=== PATIENT | female | born 1945 | race Caucasian/White ===

== ENCOUNTER 2022-07-11 03:54 | Emergency (ER) | payer MEDICARE, SELFPAY ==
[2022-07-11 03:56] VITALS: BP 125/77; PULSE 117; RESP 18; TEMP 36.6; O2SAT 93; BMI 51.0
[2022-07-11] MEDS: HYDROcodone Bitartrate/Apap 5/325 Tablet PO (04:48)
--- NOTE | 2022-07-11 04:53 | ED.VIS.BACK ---
HPI History of Present Illness Chief Complaint: Back Narrative Narrative: 76-year-old female presenting with pain in the left gluteal region radiating down her posterior leg for the last month. She states she was seen by her primary care physician's nurse practitioner about a week ago that she was told she has arthritis. She was put on cyclobenzaprine and Ultram and has been taking this and seems like it was helping although tonight when she took it it did not help. She denies any new trauma. She denies loss of bladder or bowel control. She denies saddle anesthesia or anesthesia. She does some difficulty getting up out of bed earlier secondary to pain. She states she can ambulate however with her walker. She has not had any falls. [facility] Medical History A-fib Diabetes Sleep apnea Home Medications Multi For Her tab PO.IVFORM DAILY 07/11/22 [History Last Taken Unknown] atorvastatin 10 mg tablet 10 mg PO QHS 07/11/22 [History Last Taken Unknown] benazepril 10 mg tablet 10 mg PO DAILY 07/11/22 [History Last Taken Unknown] cholecalciferol (vitamin D3) 10 mcg (400 unit) capsule (Vitamin D3) mcg PO DAILY 07/11/22 [History Last Taken Unknown] cyclobenzaprine 5 mg tablet 5 mg PO QHS 07/11/22 [History Last Taken Unknown] diltiazem HCl 240 mg capsule,24 hr,extended release 240 mg PO DAILY 07/11/22 [History Last Taken Unknown] fluconazole 100 mg tablet 100 mg PO DAILY 07/11/22 [History Last Taken Unknown] furosemide 20 mg tablet (Lasix) 20 mg PO DAILY 07/11/22 [History Last Taken Unknown] glipizide 2.5 mg tablet, extended release 24 hr 2.5 mg PO DAILY 07/11/22 [History Last Taken Unknown] hydrocodone-acetaminophen 5-325mg 5mg-325mg 1 tab PO Q6H PRN PRN Pain 3 days #12 TABLETS 07/11/22 [Rx Last Taken Unknown] iron 18 mg tablet mg PO DAILY 07/11/22 [History Last Taken Unknown] metoprolol tartrate 25 mg tablet 25 mg PO BID 07/11/22 [History Last Taken Unknown] rivaroxaban 20 mg tablet (Xarelto) 20 mg PO DAILY 07/11/22 [History Last Taken Unknown] spironolactone 25 mg tablet 25 mg PO DAILY 07/11/22 [History Last Taken Unknown] tramadol 50 mg tablet 50 mg PO BID PRN Pain 07/11/22 [History Last Taken Unknown] Allergy/AdvReac Type Severity Reaction Status Date / Time No Known Allergies Allergy Verified 07/11/22 03:58 Social History Smoking Status: Never smoker ROS ROS ED Constitutional Constitutional ED: Denies chills or fever(s) Eyes Eyes: Denies change in vision or diplopia ENT ENT ED: Denies rhinorrhea or sore throat Cardiovascular Cardiovascular: Denies chest pain or palpitations Respiratory/Chest Respiratory/Chest: Denies dyspnea or dyspnea on exertion Gastrointestinal Gastrointestinal: Denies abdominal pain or constipation Musculoskeletal Musculoskeletal: Reports other Details: Left gluteal pain radiating down her leg posteriorly Integumentary Denies abscess or Abrasions EXAM Physical Exam Const Vital Signs: 07/11/22 03:56 Temperature 97.8 F Temperature Source Oral Pulse Rate 117 H Respiratory Rate 18 Blood Pressure 125/77 H Blood Pressure Mean 93 Pulse Ox 93 Oxygen Delivery Method Room Air Positive well nourished and obese General Appearance ED: NAD Nutritional Appearance: obese HEENT Reports moist mucous membranes Eyes PERRL Neck No no lymphadenopathy and No supple Resp normal respiratory effort and clear to auscultation bilaterally Cardio Negative for regular rate or regular rhythm GI normal to inspection, nondistended, normoactive bowel sounds Palpation: Negative for tender or guarding Extremity Extremity Narrative: Tenderness to palpation in the left gluteal region. Straight leg raise test positive at 15 degrees. Neuro oriented x3 Sensorium / Orientation: alert Motor Exam: strength 5/5 throughout Psych mental status grossly normal Skin no rashes or lesions noted MDM MDM MDM Narrative Medical decision making narrative: After discussion with her and her daughter they wanted to try [place] as they had not previously been prescribed this. I did offer IM morphine to try to get the pain in control quicker, but the patient states that she does not want a shot if she has any 1. She was given a [place]. I do not believe she we will reevaluate her and see if she can ambulate. On reevaluation at 6:30 AM the patient is ambulatory. She states her pain is well controlled. At this point I feel she stable for discharge. She will be given a prescription for [place] for home. Return precautions are discussed. I did recommend to her that she start a stool softener and/or laxative given that opioids will make her constipated. She knowledge understanding. Impression: 1. Sciatica Discharge Plan Triage Chief Complaint: Back ED Provider: Jadiel Tipton Dx/Rx/DC Orders Instructions: ED Sciatica Prescriptions: New hydrocodone-acetaminophen 5-325 mg tablet 1 tab PO Q6H PRN PRN (Reason: Pain) 3 Days Qty: 12 0RF No Action fluconazole 100 mg Tablet 100 mg PO DAILY atorvastatin 10 mg Tablet 10 mg PO QHS diltiazem HCl 240 mg Capsule,Extended Release 24 Hr 240 mg PO DAILY tramadol 50 mg Tablet 50 mg PO BID PRN (Reason: Pain) spironolactone 25 mg Tablet 25 mg PO DAILY glipizide 2.5 mg Tablet Extended Release 24hr 2.5 mg PO DAILY furosemide [Lasix] 20 mg Tablet 20 mg PO DAILY benazepril 10 mg Tablet 10 mg PO DAILY iron 18 mg Tablet PO DAILY cholecalciferol (vitamin D3) [Vitamin D3] 10 mcg (400 unit) Capsule PO DAILY cyclobenzaprine 5 mg Tablet 5 mg PO QHS metoprolol tartrate 25 mg Tablet 25 mg PO BID Xarelto 20 mg Tablet 20 mg PO DAILY Rx Instructions: must administer with evening meal Multi For Her PO.IVFORM DAILY Primary Care Provider: Delia Ibanez NP Referrals: Delia Ibanez NP, [facility] [Primary Care Provider] - Disposition Disposition: Home, Self Care
== END 2022-07-11 06:39 | disposition home or self-care (01) ==
PROVIDERS: Emergency Provider Student in an Organized Health Care Education/Training Program; PCP Internal Medicine; Visit Provider Student in an Organized Health Care Education/Training Program
DX: M54.30 Sciatica, unspecified side (principal); I48.91 Unspecified atrial fibrillation; E11.9 Type 2 diabetes mellitus without complications; Z79.899 Other long term (current) drug therapy; Z79.01 Long term (current) use of anticoagulants
CPT/HCPCS: 99284

== ENCOUNTER 2022-07-24 12:00 | Inpatient (IN) | payer MEDICARE, SELFPAY ==
[2022-07-24 12:01] VITALS: BP 101/58; PULSE 70; RESP 14; TEMP 36.1; O2SAT 92
[2022-07-24 12:08] VITALS: BMI 50.4
--- NOTE | 2022-07-24 12:19 | EDS_ITS ---
HPI History of Present Illness Chief Complaint: Back Detail of Chief Complaint: Back and leg pain Informant: patient Narrative Narrative: Patient presents with back and leg pain for about 2 weeks. Patient states that she was seen by her primary care physician initially and given muscle relaxer and pain medicine. She then was also seen in the emergency department and treated for suspected sciatica. Patient's had no injury to her back or falls. She did fall few days ago and EMS had to help her up but she had no injury. Patient having a hard time getting up from a seated position but once she is up she can actually help her self to the bathroom and ambulate. She denies weakness in extremities. She denies change in bowel or bladder function. She denies dysuria or urgency or frequency. Patient is on Xarelto for history of A- fib. [facility] Medical History (Updated 07/24/22 @ 14:[address] Deshawn Gentile, ) A-fib Diabetes Hernia of abdominal wall Hypertension Sleep apnea Home Medications Multi For Her tab PO.IVFORM DAILY 07/11/22 [History Last Taken Unknown] atorvastatin 10 mg tablet 10 mg PO QHS 07/11/22 [History Last Taken Unknown] benazepril 10 mg tablet 10 mg PO DAILY 07/11/22 [History Last Taken Unknown] cholecalciferol (vitamin D3) 10 mcg (400 unit) capsule (Vitamin D3) mcg PO DAILY 07/11/22 [History Last Taken Unknown] cyclobenzaprine 5 mg tablet 5 mg PO QHS 07/11/22 [History Last Taken Unknown] diltiazem HCl 240 mg capsule,24 hr,extended release 240 mg PO DAILY 07/11/22 [History Last Taken Unknown] fluconazole 100 mg tablet 100 mg PO DAILY 07/11/22 [History Last Taken Unknown] furosemide 20 mg tablet (Lasix) 20 mg PO DAILY 07/11/22 [History Last Taken Unknown] glipizide 2.5 mg tablet, extended release 24 hr 2.5 mg PO DAILY 07/11/22 [History Last Taken Unknown] hydrocodone-acetaminophen 5-325mg 5mg-325mg 1 tab PO Q6H PRN PRN Pain 3 days #12 TABLETS 07/11/22 [Rx Last Taken Unknown] iron 18 mg tablet mg PO DAILY 07/11/22 [History Last Taken Unknown] metoprolol tartrate 25 mg tablet 25 mg PO BID 07/11/22 [History Last Taken Unknown] rivaroxaban 20 mg tablet (Xarelto) 20 mg PO DAILY 07/11/22 [History Last Taken Unknown] spironolactone 25 mg tablet 25 mg PO DAILY 07/11/22 [History Last Taken Unknown] tramadol 50 mg tablet 50 mg PO BID PRN Pain 07/11/22 [History Last Taken Unknown] Allergy/AdvReac Type Severity Reaction Status Date / Time No Known Allergies Allergy Verified 07/24/22 12:01 Surgical History (Updated 07/24/22 @ 12:10 by Odette Yoo) History of hysterectomy Social History Smoking Status: Never smoker ROS ROS ED Review of Systems ROS Unobtainable: other Constitutional Constitutional ED: Reports lethargy; Denies chills, fever(s), sweats or weight loss Eyes Eyes: Denies blurry vision, change in vision or diplopia ENT ENT ED: Denies rhinorrhea or sore throat Cardiovascular Cardiovascular: Denies chest pain, orthopnea or racing heartbeat Respiratory/Chest Respiratory/Chest: Denies cough, dyspnea, dyspnea on exertion, orthopnea or sputum Gastrointestinal Gastrointestinal: Denies abdominal pain, diarrhea, nausea or vomiting Genitourinary Genitourinary ED: Denies dysuria, hematuria or urinary frequency Musculoskeletal Musculoskeletal: Reports back pain; Denies arthralgias, myalgias or neck pain Integumentary Denies abscess, Abrasions or rash Neurologic Neurologic: Denies headache(s) or weakness Psychiatric Psychiatric: Denies anxiety, depression or suicidal thoughts Endocrine Endocrinology: Denies polydipsia, polyphagia or polyuria Hematologic/Lymphatic Hematologic/Lymphatic: Denies easy bleeding, easy bruising or lymphadenopathy Allergic/Immunologic Allergic/Immunologic ED: Denies mouth swelling, tongue swelling or urticaria EXAM Physical Exam Const Vital Signs: 07/24/22 12:01 Temperature 97 F L Temperature Source Temporal Pulse Rate 70 Respiratory Rate 14 Blood Pressure 101/58 L Blood Pressure Mean 72 Pulse Ox 92 Oxygen Delivery Method Room Air Positive well nourished and well developed General Appearance ED: well developed and NAD HEENT Reports TM's clear and moist mucous membranes normocephalic and atraumatic; Negative for trauma or tenderness Tympanic Membrane ED: Yes TM's clear Eyes PERRL and EOMs intact bilaterally General Eye ED: Negative for pale conjunctiva or scleral icterus Neck no lymphadenopathy, supple and no JVD General: Negative for tenderness Chest Wall inspection of chest normal and palpation of chest normal Chest: Negative for tenderness Resp normal respiratory effort and clear to auscultation bilaterally Effort and Inspection: Negative for respiratory distress or pain with movement Auscultation: Negative for rhonchi, wheezes or diminished lung sounds Cardio regular rate, regular rhythm, S1 normal heart sound, S2 normal heart sound and no murmurs Peripheral Pulses: pulses 2+ throughout GI normal to inspection, nondistended, normoactive bowel sounds, soft to palpation, non-tender, non-distended and no masses Back/Spine no CVA tenderness and no thoracic nor lumbar tenderness Back/Spine Narrative: Patient with some diffuse tenderness over the lumbar paraspinal musculature bilaterally. She has a positive straight leg raise on the right about 30 degrees while seated. She has normal L5 extension bilaterally. Deep tendon reflexes are plus 1 out of 4 bilaterally at the patella Achilles. Patient has normal sensation to light touch. Extremity normal to inspection General Extremety ED: Negative for edema General Extremity: Negative for edema Neuro oriented x3, CN's II-XII intact bilaterally, no sensory deficits noted and gait normal Sensorium / Orientation: awake, alert, oriented to person, oriented to place and oriented to time Motor Exam: strength 5/5 throughout and strength abnormal Psych mental status grossly normal Skin no rashes or lesions noted and no wounds MDM MDM MDM Narrative Medical decision making narrative: Patient presents with deconditioning and difficulty ambulating. She complains of pain in her low back and buttocks radiating down both legs. Patient has been seen in the emergency department as well as by her primary care physician who is now recommending admission to rehab facility. Patient had some basic labs that were unremarkable CBC and chemistries. Her BUN was 36 and creatinine 1.23. There are no red flag symptoms of cauda equina at this time. She has not had any imaging. I feel she will likely require admission and possible MRI of lumbar spine to evaluate further. Case will be discussed with hospitalist. I do not feel she needs an emergent MRI today out of the emergency department. Lab Data Attestation: I reviewed the patient's lab results. Labs: Laboratory Results - last 24 hr 07/24/22 07/24/22 07/24/22 12:30 12:30 13:45 WBC 9.6 RBC 3.56 L Hgb 10.6 L Hct 34.0 L MCV 95.5 MCH 29.8 MCHC 31.2 L RDW Std Deviation 49.3 H RDW Coeff of Duy 14.3 Plt Count 316 MPV 8.8 Immature Gran % (Auto) 0.700 Neut % (Auto) 70.6 H Lymph % (Auto) 14.2 L [place] % (Auto) 13.2 H Eos % (Auto) 0.9 Baso % (Auto) 0.4 Absolute Neuts (auto) 6.8 Absolute Lymphs (auto) 1.36 Nucleated RBC % 0 Sodium 136 Potassium 4.7 Chloride 104 Carbon Dioxide 25.0 Anion Gap 7 BUN 36 H Creatinine 1.23 H Estim Creat Clear Calc 27.51 Est GFR (MDRD) Af Amer 54 L Est GFR (MDRD) Non-Af 45 L BUN/Creatinine Ratio 29.3 H Glucose 96 Calcium 8.8 Urine Color Yellow Urine Clarity Clear Urine pH 6.0 Ur Specific [place] 1.010 Urine Protein Negative Urine Glucose (UA) Normal Urine Ketones Negative Urine Occult Blood Negative Urine Nitrite Negative Urine Bilirubin Negative Urine Urobilinogen Normal Ur Leukocyte Esterase 25 H Urine RBC 0 SEEN Urine WBC 0 SEEN Ur Squamous Epith Cells 0-5 SEEN Urine Bacteria 0 SEEN Urine Mucus 0 SEEN Discharge Plan Dx/Rx/DC Orders Clinical Impression: Adult failure to thrive, Sciatica, History of hypertension Disposition Disposition: Acute Care Hospital [facility]
[2022-07-24] MEDS: 0.9% Normal Saline 1,000 ML 150 ML IV ×2 (12:31→17:54)
[2022-07-24 12:47] LABS: Absolute Lymphocyte Count 1.36 X10^3/uL (0.83-4.51); Absolute Neutrophil Count 6.8 X10^3/uL (2.0-7.7); Basophil# 0.04 X10^3/uL; Basophil% 0.4 % (0-1); Eosinophil# 0.09 X10^3/uL; Eosinophils% 0.9 % (0-5); Hemoglobin 10.6 g/dL (12.0-15.0); Lymphocyte # 1.36 X10^3/ul (0.83-4.51); Lymphocyte % 14.2 % (19-41); Mean Corp Hgb Conc 31.2 g/dL (32-36); Mean Corpuscular Hgb 29.8 pg (27.0-32.0); Mean Corpuscular Volume 95.5 fL (81-99); Mean Platelet Vol. 8.8 fl (6.2-12.0); Monocyte# 1.27 X10^3/uL; Monocyte% 13.2 % (0-10); NRBC Flagged by Analyzer 0 % (0-5); Neutrophil # 6.77 X10^3/uL (2.7-7.7); Neutrophil % 70.6 % (47-70); Platelet Count 316 K/mm3 (150-450); RBC Distribution Width CV 14.3 % (11.6-14.6); RBC Distribution Width SD 49.3 fl (35.1-43.9); Red Blood Count 3.56 M/mm3 (4.2-5.4); White Blood Count 9.6 K/mm3 (4.4-11.0)
[2022-07-24 13:03] LABS: Anion Gap 7 (5-15); BUN 36 mg/dL (7-18); BUN/Creat Ratio 29.3 RATIO (10-20); Calcium,Total 8.8 mg/dL (8.5-10.1); Chloride 104 mmol/L (98-107); Creatinine, Serum 1.23 mg/dL (0.55-1.02); EST Glomerular Filtration Rate 45 mL/min (>60); Est Glom Filt Rate - Afr Amer 54 mL/min (>60); Estimated Creatinine Clearance 27.51 ml/min; Glucose 96 mg/dL (74-106); Potassium 4.7 mmol/L (3.5-5.1); Sodium Level 136 mmol/L (136-145)
[2022-07-24 13:50] LABS: Bacteria 0 SEEN /hpf (None Seen); Mucous, Urine 0 SEEN /hpf (<or=2+); Red Blood Cells-Urine 0 SEEN /hpf (0-5); White Blood Cells 0 SEEN /hpf (0-5)
[2022-07-24 13:52] LABS: Color, Urine Yellow (Yellow); Glucose, Dipstick Normal (Normal); Ketone-Dipstick Negative (Negative); Leukocyte Esterase-Dipstick 25 /ul (Negative); Nitrite-Dipstick Negative (Negative); Occult Blood-Urine Negative /ul (Negative); Protein-Dipstick Negative (Negative); Urine Bilirubin Dipstick Negative (Negative); Urine Clarity Clear (Clear); Urine Urobilinogen Normal (Normal)
[2022-07-24 14:30] LABS: Squamous Epithelial Cells - UA 0-5 SEEN /hpf (5-10)
[2022-07-24] MEDS: Ondansetron 4 MG/2 ML Vial IV (14:35)
[2022-07-24] MEDS: Morphine 4 MG/ML Syringe IV (14:36)
--- NOTE | 2022-07-24 15:06 | NURSING ---
MED SURG KOTSONIS SCIATICA, FAILURE TO THRIVE, HX OF HYPERTENSION, CHRONIC ANTICOAGULATION
--- NOTE | 2022-07-24 15:42 | PCM.HP.STD ---
HPI - General General Date of Admission: 07/24/22 HPI Narrative EYAD SARMIENTO, is a 76 F who presents with severe back pain and right-sided sciatica. She states that the back pain started about a month ago and she had been seeing her doctor for it. Outside images were unremarkable. She did get a prescription for physical therapy but that has not seemed to help. Over the last month her pain has been getting worse and has been radiating down her right leg. Most of the pain tends to be in the middle of her back but on occasion does radiate to the right side. She denies any traumatic mechanism around the time but the pain started [facility] Medical History (Updated 07/24/22 @ 14:[address] Deshawn Gentile, DO) A-fib Diabetes Hernia of abdominal wall Hypertension Sleep apnea Home Medications Multi For Her tab PO.IVFORM DAILY 07/11/22 [History Last Taken Unknown] atorvastatin 10 mg tablet 10 mg PO QHS 07/11/22 [History Last Taken Unknown] benazepril 10 mg tablet 10 mg PO DAILY 07/11/22 [History Last Taken Unknown] cholecalciferol (vitamin D3) 10 mcg (400 unit) capsule (Vitamin D3) 10 mcg PO DAILY 07/11/22 [History Last Taken Unknown] cyclobenzaprine 5 mg tablet 5 mg PO QHS 07/11/22 [History Last Taken Unknown] diltiazem HCl 240 mg capsule,24 hr,extended release 240 mg PO DAILY 07/11/22 [History Last Taken Unknown] fluconazole 100 mg tablet 100 mg PO DAILY 07/11/22 [History Last Taken Unknown] furosemide 20 mg tablet (Lasix) 20 mg PO DAILY 07/11/22 [History Last Taken Unknown] glipizide 2.5 mg tablet, extended release 24 hr 2.5 mg PO DAILY 07/11/22 [History Last Taken Unknown] hydrocodone-acetaminophen 5-325mg 5mg-325mg 1 tab PO Q6H PRN PRN Pain 3 days #12 TABLETS 07/11/22 [Rx Last Taken Unknown] iron 18 mg tablet 18 mg PO DAILY 07/11/22 [History Last Taken Unknown] metoprolol tartrate 25 mg tablet 25 mg PO BID 07/11/22 [History Last Taken Unknown] rivaroxaban 20 mg tablet (Xarelto) 20 mg PO DAILY 07/11/22 [History Last Taken Unknown] spironolactone 25 mg tablet 25 mg PO DAILY 07/11/22 [History Last Taken Unknown] tramadol 50 mg tablet 50 mg PO BID PRN Pain 07/11/22 [History Last Taken Unknown] Allergy/AdvReac Type Severity Reaction Status Date / Time No Known Allergies Allergy Verified 07/24/22 12:01 Family History (Updated 07/24/22 @ 15:[address] Michi Shane MD) Other Diabetes Heart disease Hypertension Surgical History (Updated 07/24/22 @ 12:10 by Odette Yoo) History of hysterectomy Social History Smoking Status: Never smoker ROS Constitutional Constitutional: Denies chills, fatigue, fever(s) or malaise Eyes Eyes: Denies blurry vision ENT HEENT: Denies headache(s) or nasal discharge Cardiovascular Cardiovascular: Denies chest pain, dyspnea on exertion or syncope Respiratory/Chest Respiratory/Chest: Denies cough, shortness of breath at rest or shortness of breath with exertion Gastrointestinal Gastrointestinal: Denies constipation, diarrhea, nausea or vomiting Genitourinary Genitourinary: Denies dysuria Musculoskeletal Musculoskeletal: Reports back pain Neurologic Neurologic: Denies focal weakness, numbness or tremor(s) Psychiatric Psychiatric: Denies anxiety or depression Vital Signs Vital Signs Vital Signs: 07/24/22 12:01 Temperature 97 F L Temperature Source Temporal Pulse Rate 70 Respiratory Rate 14 Blood Pressure 101/58 L Blood Pressure Mean 72 Pulse Ox 92 Oxygen Delivery Method Room Air Weight Weight: 258 lb 6.108 oz Body Mass Index (BMI) 50.4 Physical Exam Narrative General: Alert, Oriented x3, Cooperative, No apparent distress HEENT: Atraumatic, PERRLA, EOMI, Normocephalic Oral: Moist Mucosa Neck: Supple, No JVD Lungs: Diminished, Normal air movement, No rhonchi, No wheeze, No rales Cardiovascular: Regular rate, Regular Rhythm, Normal S1, Normal S2, No murmurs Abdomen: Soft, Non Tender, Non-Distended, No Hepato-splenomegaly Extremities: No edema, Capillary Refill Less than 3 Seconds Skin: No rashes, No breakdown Musculoskeletal: Straight leg raise on the right is positive with mild tenderness to palpation of her mid spine in the lumbar region Neurological: Motor Exam 5/5 strength in her bilateral upper extremities and left lower extremity, right lower extremity strength is limited by pain, Sensory exam intact to light touch and pain Psych/Mental Status: Normal Affect, Appropriate Results Lab / Micro Data Result Diagrams: 07/24/22 12:30 07/24/22 12:30 Labs: Laboratory Results - last 24 hr 07/24/22 12:30: WBC 9.6, RBC 3.56 L, Hgb 10.6 L, Hct 34.0 L, MCV 95.5, MCH 29.8, MCHC 31.2 L, RDW Std Deviation 49.3 H, RDW Coeff of Duy 14.3, Plt Count 316, MPV 8.8, Immature Gran % (Auto) 0.700, Neut % (Auto) 70.6 H, Lymph % (Auto) 14.2 L, [place] % (Auto) 13.2 H, Eos % (Auto) 0.9, Baso % (Auto) 0.4, Absolute Neuts (auto) 6.8, Absolute Lymphs (auto) 1.36, Nucleated RBC % 0 07/24/22 12:30: Sodium 136, Potassium 4.7, Chloride 104, Carbon Dioxide 25.0, Anion Gap 7, BUN 36 H, Creatinine 1.23 H, Estim Creat Clear Calc 27.51, Est GFR (MDRD) Af Amer 54 L, Est GFR (MDRD) Non-Af 45 L, BUN/Creatinine Ratio 29.3 H, Glucose 96, Calcium 8.8 07/24/22 13:45: Urine Color Yellow, Urine Clarity Clear, Urine pH 6.0, Ur Specific [place] 1.010, Urine Protein Negative, Urine Glucose (UA) Normal, Urine Ketones Negative, Urine Occult Blood Negative, Urine Nitrite Negative, Urine Bilirubin Negative, Urine Urobilinogen Normal, Ur Leukocyte Esterase 25 H, Urine RBC 0 SEEN, Urine WBC 0 SEEN, Ur Squamous Epith Cells 0-5 SEEN, Urine Bacteria 0 SEEN, Urine Mucus 0 SEEN Assessment & Plan Assessment/Plan (1) Sciatica: PLAN: Plan 1. Back pain with right-sided sciatica with inability to complete ADLs ? We will consult PT/OT for further evaluation though this did not seem to be helping much as an outpatient ? Continue with steroids and Valium to assist with pain ? Since she says she has had outpatient imaging we will proceed with an MRI of her lumbar spine given continued issues over the last 4 to 6 weeks 2. HTN/HLD/A-fib ? Blood pressures are stable ? Can resume home blood pressure medications ? We will restart her other home medications once verified 3. Type 2 diabetes ? We will hold her home medications ? Continue sliding scale insulin ? Accu-Cheks ACHS ? We will make adjustments as necessary DVT: Possible Xarelto, will await verification 76 minutes was spent on direct patient care as well as chart review and collaboration with colleagues Charges/Coding Visit Charges Inpatient E&M: 87336 Init Hosp L3
[2022-07-24 16:04] VITALS: BP 108/72; PULSE 71; RESP 18; TEMP 36.2; O2SAT 98
[2022-07-24 17:35] VITALS: BMI 49.8
[2022-07-24 18:01] VITALS: BP 118/53; PULSE 101; RESP 16; TEMP 36.6; O2SAT 94
[2022-07-24 18:12] LABS: Bedside Glucose 107 mg/dL (74-106)
[2022-07-24 21:39] VITALS: BP 109/58; PULSE 61; RESP 18; TEMP 36.4; O2SAT 93
[2022-07-24] MEDS: Atorvastatin Calcium 10 MG Tablet PO (21:42)
[2022-07-24] MEDS: cycloBENZAPRine HCl 5 MG TABLET PO (21:42)
[2022-07-24] MEDS: diazePAM 2 MG Tablet PO (21:42)
[2022-07-24 22:22] LABS: Bedside Glucose 131 mg/dL (74-106)
[2022-07-25] VITALS (8 sets, daily range): BP systolic 97–126; BP diastolic 56–73; PULSE 77–120; RESP 18–20; TEMP 36.4–36.7; O2SAT 92–95
[2022-07-25] MEDS: 0.9% Normal Saline 1,000 ML 150 ML IV ×4 (00:36→19:17)
[2022-07-25] MEDS: diazePAM 2 MG Tablet PO ×2 (01:10→19:19)
[2022-07-25] MEDS: Methocarbamol 750 MG Tablet PO ×3 (04:17→21:35)
[2022-07-25 06:15] LABS: Absolute Lymphocyte Count 1.37 X10^3/uL (0.83-4.51); Absolute Neutrophil Count 5.7 X10^3/uL (2.0-7.7); Basophil# 0.04 X10^3/uL; Basophil% 0.5 % (0-1); Eosinophils% 1.2 % (0-5); Hematocrit 31.3 % (37-47); Hemoglobin 9.8 g/dL (12.0-15.0); Lymphocyte # 1.37 X10^3/ul (0.83-4.51); Lymphocyte % 16.5 % (19-41); Mean Corp Hgb Conc 31.3 g/dL (32-36); Mean Corpuscular Hgb 30.1 pg (27.0-32.0); Monocyte% 13.2 % (0-10); NRBC Flagged by Analyzer 0 % (0-5); Neutrophil # 5.66 X10^3/uL (2.7-7.7); Neutrophil % 68.1 % (47-70); Platelet Count 262 K/mm3 (150-450); RBC Distribution Width CV 14.3 % (11.6-14.6); RBC Distribution Width SD 49.5 fl (35.1-43.9); Red Blood Count 3.26 M/mm3 (4.2-5.4); White Blood Count 8.3 K/mm3 (4.4-11.0)
[2022-07-25 06:42] LABS: Anion Gap 8 (5-15); BUN 25 mg/dL (7-18); BUN/Creat Ratio 22.5 RATIO (10-20); Calcium,Total 8.8 mg/dL (8.5-10.1); Chloride 107 mmol/L (98-107); Creatinine, Serum 1.11 mg/dL (0.55-1.02); EST Glomerular Filtration Rate 51 mL/min (>60); Est Glom Filt Rate - Afr Amer 61 mL/min (>60); Estimated Creatinine Clearance 30.49 ml/min; Glucose 110 mg/dL (74-106); Potassium 4.4 mmol/L (3.5-5.1); Sodium Level 138 mmol/L (136-145)
[2022-07-25 06:48] LABS: Bedside Glucose 124 mg/dL (74-106)
[2022-07-25] MEDS: predniSONE 20 MG Tablet 40 MG PO (07:49)
[2022-07-25] MEDS: Furosemide 20 MG Tablet PO (07:49)
[2022-07-25] MEDS: dilTIAZem CD 240 MG Capsule PO (07:49)
--- NOTE | 2022-07-25 09:30 | PN.HOSP_ITS ---
Subjective Subjective Doing well, no issues overnight. She did have some improvement with her pain medications Objective Data Objective Data Vital Signs: Vital Signs Temp Pulse Resp BP Pulse Ox O2 Del Method 97.6 F L 120 H 18 121/69 H 92 Room Air 07/25/22 07:48 07/25/22 07:48 07/25/22 07:48 07/25/22 07:48 07/25/22 07:48 07/25/22 07:48 Oxygen Delivery Method Room Air Weight: 255 lb Body Mass Index (BMI) 49.8 Intake & Output: Intake and Output for Last 24 Hours 07/24/22 07/25/22 07/26/22 03:59 03:59 03:59 Intake Total 1956.5 / 1956.5 1020 / 1020 Balance 1956. 1020 / 1020 Lab / Micro Data Result Diagrams: 07/25/22 05:35 07/25/22 05:35 Labs: Laboratory Results - last 24 hr 07/24/22 12:30: WBC 9.6, RBC 3.56 L, Hgb 10.6 L, Hct 34.0 L, MCV 95.5, MCH 29.8, MCHC 31.2 L, RDW Std Deviation 49.3 H, RDW Coeff of Duy 14.3, Plt Count 316, MPV 8.8, Immature Gran % (Auto) 0.700, Neut % (Auto) 70.6 H, Lymph % (Auto) 14.2 L, [place] % (Auto) 13.2 H, Eos % (Auto) 0.9, Baso % (Auto) 0.4, Absolute Neuts (auto) 6.8, Absolute Lymphs (auto) 1.36, Nucleated RBC % 0 07/24/22 12:30: Sodium 136, Potassium 4.7, Chloride 104, Carbon Dioxide 25.0, Anion Gap 7, BUN 36 H, Creatinine 1.23 H, Estim Creat Clear Calc 27.51, Est GFR (MDRD) Af Amer 54 L, Est GFR (MDRD) Non-Af 45 L, BUN/Creatinine Ratio 29.3 H, Glucose 96, Calcium 8.8 07/24/22 13:45: Urine Color Yellow, Urine Clarity Clear, Urine pH 6.0, Ur Specific [place] 1.010, Urine Protein Negative, Urine Glucose (UA) Normal, Urine Ketones Negative, Urine Occult Blood Negative, Urine Nitrite Negative, Urine Bilirubin Negative, Urine Urobilinogen Normal, Ur Leukocyte Esterase 25 H, Urine RBC 0 SEEN, Urine WBC 0 SEEN, Ur Squamous Epith Cells 0-5 SEEN, Urine Bacteria 0 SEEN, Urine Mucus 0 SEEN 07/24/22 17:51: POC Glucose 107 H 07/24/22 21:44: POC Glucose 131 H 07/25/22 05:35: WBC 8.3, RBC 3.26 L, Hgb 9.8 L, Hct 31.3 L, MCV 96.0, MCH 30.1, MCHC 31.3 L, RDW Std Deviation 49.5 H, RDW Coeff of Duy 14.3, Plt Count 262, MPV 9.0, Immature Gran % (Auto) 0.500, Neut % (Auto) 68.1, Lymph % (Auto) 16.5 L, Hudson % (Auto) 13.2 H, Eos % (Auto) 1.2, Baso % (Auto) 0.5, Absolute Neuts (auto) 5.7, Absolute Lymphs (auto) 1.37, Nucleated RBC % 0 07/25/22 05:35: Sodium 138, Potassium 4.4, Chloride 107, Carbon Dioxide 23.0, Anion Gap 8, BUN 25 H, Creatinine 1.11 H, Estim Creat Clear Calc 30.49, Est GFR (MDRD) Af Amer 61, Est GFR (MDRD) Non-Af 51 L, BUN/Creatinine Ratio 22.5 H, Glucose 110 H, Calcium 8.8 07/25/22 06:31: POC Glucose 124 H Physical Exam Narrative General: Alert, Oriented x3, Cooperative, No apparent distress HEENT: Atraumatic, PERRLA, EOMI, Normocephalic Oral: Moist Mucosa Neck: Supple, No JVD Lungs: Diminished, Normal air movement, No rhonchi, No wheeze, No rales Cardiovascular: Regular rate, Regular Rhythm, Normal S1, Normal S2, No murmurs Abdomen: Soft, Non Tender, Non-Distended, No Hepato-splenomegaly Extremities: No edema, Capillary Refill Less than 3 Seconds Skin: No rashes, No breakdown Musculoskeletal: Straight leg raise on the right is positive with mild tenderness to palpation of her mid spine in the lumbar region Neurological: Motor Exam 5/5 strength in her bilateral upper extremities and left lower extremity, right lower extremity strength is limited by pain, Sensory exam intact to light touch and pain Psych/Mental Status: Normal Affect, Appropriate Assessment & Plan Assessment/Plan (1) Sciatica: PLAN: Plan 1. Back pain with right-sided sciatica with inability to complete ADLs ? We will consult PT/OT for further evaluation though this did not seem to be helping much as an outpatient ? Continue with steroids and Valium to assist with pain ? Since she says she has had outpatient imaging we will proceed with an MRI of her lumbar spine given continued issues over the last 4 to 6 weeks 2. HTN/HLD/A-fib ? Blood pressures are stable ? Can resume home blood pressure medications ? We will restart her other home medications once verified 3. Type 2 diabetes ? We will hold her home medications ? Continue sliding scale insulin ? Accu-Cheks ACHS ? We will make adjustments as necessary DVT: Xarelto Charges/Coding Visit Charges Inpatient E&M: 48073 Subs Hosp L2
[2022-07-25] MEDS: Spironolactone 25 MG Tablet PO (10:46)
[2022-07-25 11:34] LABS: Bedside Glucose 162 mg/dL (74-106)
[2022-07-25] MEDS: Insulin Lispro 100 UNIT/ML INSULN.PEN SC (16:29)
[2022-07-25] MEDS: Rivaroxaban 20 MG Tablet PO (16:29)
[2022-07-25 16:42] LABS: Bedside Glucose 182 mg/dL (74-106)
[2022-07-25] MEDS: cycloBENZAPRine HCl 5 MG TABLET PO (20:33)
[2022-07-25] MEDS: Atorvastatin Calcium 10 MG Tablet PO (20:33)
[2022-07-25 23:47] LABS: Bedside Glucose 137 mg/dL (74-106)
[2022-07-26 02:36] VITALS: BP 117/68; PULSE 114; RESP 20; TEMP 36.5; O2SAT 95
[2022-07-26] MEDS: diazePAM 2 MG Tablet PO ×3 (02:36→20:50)
[2022-07-26] MEDS: 0.9% Normal Saline 1,000 ML 150 ML IV ×2 (02:37→08:32)
[2022-07-26 05:34] VITALS: BP 127/81; PULSE 104; RESP 20; TEMP 36.5; O2SAT 96
[2022-07-26 06:36] LABS: Absolute Neutrophil Count 9.1 X10^3/uL (2.0-7.7); Basophil# 0.03 X10^3/uL; Basophil% 0.3 % (0-1); Eosinophil# 0.03 X10^3/uL; Eosinophils% 0.3 % (0-5); Hematocrit 33.6 % (37-47); Hemoglobin 10.2 g/dL (12.0-15.0); Lymphocyte % 9.4 % (19-41); Mean Corp Hgb Conc 30.4 g/dL (32-36); Mean Corpuscular Hgb 29.5 pg (27.0-32.0); Mean Corpuscular Volume 97.1 fL (81-99); Mean Platelet Vol. 8.9 fl (6.2-12.0); Monocyte# 1.27 X10^3/uL; Monocyte% 10.9 % (0-10); NRBC Flagged by Analyzer 0 % (0-5); Neutrophil # 9.13 X10^3/uL (2.7-7.7); Neutrophil % 78.2 % (47-70); Platelet Count 274 K/mm3 (150-450); RBC Distribution Width CV 14.4 % (11.6-14.6); RBC Distribution Width SD 50.8 fl (35.1-43.9); Red Blood Count 3.46 M/mm3 (4.2-5.4); White Blood Count 11.7 K/mm3 (4.4-11.0)
[2022-07-26 07:10] LABS: Anion Gap 5 (5-15); BUN 20 mg/dL (7-18); Calcium,Total 8.5 mg/dL (8.5-10.1); Chloride 111 mmol/L (98-107); Creatinine, Serum 0.95 mg/dL (0.55-1.02); EST Glomerular Filtration Rate 60 mL/min (>60); Est Glom Filt Rate - Afr Amer 73 mL/min (>60); Estimated Creatinine Clearance 35.62 ml/min; Glucose 100 mg/dL (74-106); Potassium 3.7 mmol/L (3.5-5.1); Sodium Level 140 mmol/L (136-145)
[2022-07-26 07:19] LABS: Bedside Glucose 98 mg/dL (74-106)
--- NOTE | 2022-07-26 08:48 | PN.HOSP_ITS ---
Reason for Visit Reason for Visit: Diagnoses Sciatica, unspecified side (07/24/22) Subjective Subjective Still with back pain and pain radiating down bilateral legs. Radiating pain now on left, but previously on right. Does not feel she can do an MRI due to her legs. Objective Data Objective Data Vital Signs: Vital Signs Temp Pulse Resp BP Pulse Ox O2 Del Method 36.5 C L 104 H 20 H 127/81 H 96 Room Air 07/26/22 05:34 07/26/22 05:34 07/26/22 05:34 07/26/22 05:34 07/26/22 05:34 07/26/22 05:34 Oxygen Delivery Method Room Air Weight: 115.666 kg Body Mass Index (BMI) 49.8 Intake & Output: Intake and Output for Last 24 Hours 07/24/22 07/25/22 07/26/22 23:59 23:59 23:59 Intake Total 957.5 / 957.5 4562.5 / 4562.5 1887.5 / 1887.5 Output Total 550 / 550 Balance 957.5 / 957.5 4562.5 / 4262.5 1337.5 / 1337.5 Lab / Micro Data Result Diagrams: 07/26/22 06:10 07/26/22 06:10 Labs: Laboratory Results - last 24 hr 07/25/22 11:15: POC Glucose 162 H 07/25/22 16:19: POC Glucose 182 H 07/25/22 21:28: POC Glucose 137 H 07/26/22 05:40: POC Glucose 98 07/26/22 06:10: WBC 11.7 H, RBC 3.46 L, Hgb 10.2 L, Hct 33.6 L, MCV 97.1, MCH 29.5, MCHC 30.4 L, RDW Std Deviation 50.8 H, RDW Coeff of Duy 14.4, Plt Count 274, MPV 8.9, Immature Gran % (Auto) 0.900, Neut % (Auto) 78.2 H, Lymph % (Auto) 9.4 L, [place] % (Auto) 10.9 H, Eos % (Auto) 0.3, Baso % (Auto) 0.3, Absolute Neuts (auto) 9.1 H, Absolute Lymphs (auto) 1.10, Nucleated RBC % 0 07/26/22 06:10: Sodium 140, Potassium 3.7, Chloride 111 H, Carbon Dioxide 24.0, Anion Gap 5, BUN 20 H, Creatinine 0.95, Estim Creat Clear Calc 35.62, Est GFR (MDRD) Af Amer 73, Est GFR (MDRD) Non-Af 60, BUN/Creatinine Ratio 21.0 H, Glucose 100, Calcium 8.5 Physical Exam Const alert and no apparent distress HEENT head/scalp atraumatic and moist oral mucous membranes Cardio regular rate, regular rhythm, S1 normal heart sound and S2 normal heart sound GI normal to inspection, nondistended, normoactive bowel sounds, soft to palpation, non-tender and non-distended Extremity normal to inspection Psych Mood & Affect: anxious Assessment & Plan Assessment/Plan (1) Sciatica: PLAN: Back pain with right-sided sciatica with inability to complete ADLs PT/OT Continue with steroids and Valium to assist with pain MRI was ordered but patient states that she would not be able to complete that despite reassurance and that it would provide us additional information about what is going on with her back. Patient refusing to have MRI at this time. (2) Adult failure to thrive: PLAN: Worked with PT on 07/25. Ambulated 2 feet Likely will require SNF upon discharge PLAN: Plan Chronic condition: * HTN Continue spironolactone, furosemide * HLD continue atorvastatin * A-fib continue dilt and rivaroxaban * Type 2 diabetes ? We will hold her home medications? Continue sliding scale insulin? Accu-Cheks ACHS? We will make adjustments as necessary DVT: Xarelto Charges/Coding Visit Charges Inpatient E&M: 54876 Subs Hosp L2
[2022-07-26] MEDS: Ondansetron 4 MG/2 ML Vial IV (09:42)
[2022-07-26] MEDS: predniSONE 20 MG Tablet 40 MG PO (09:45)
[2022-07-26] MEDS: Spironolactone 25 MG Tablet PO (09:46)
[2022-07-26] MEDS: Furosemide 20 MG Tablet PO (09:46)
[2022-07-26] MEDS: dilTIAZem CD 240 MG Capsule PO (09:46)
--- NOTE | 2022-07-26 10:50 | CASEMGMT ---
REYMUNDO CARMEN Discharge Planning Assessment: Face to Face with patient for initial transition planning/care coordination assessment.?REYMUNDO CARMEN introduced self and role at [facility], pt alert and oriented x3, voices understanding and is agreeable to participating in assessment.? Care providers, pharmacy,?and demographics verified. ? Admitting dx: Back pain PCP: RODNEY Ibanez Specialists: [employer] [facility] [place] Preferred Pharmacy: [facility] Insurance: MMO [facility] Prescription Benefit:?yes Living Will/HPOA: none LNOK: daughter Hazel Living Arrangements: Pt lives with her daughter and 16yo grandson in a single story home without steps to enter. Pt states she has been independent with ADLs for self care and family assist with household tasks. Transportation: Pt's daughter provides transportation as needed DME: rollator, w/c, medical alert, built-in bench in shower, grab bars, lift chair, and glucometer with supplies. Pt states she checks her sugar every Tuesday but has increased this recently to every other day. SNF/HHC: pt denies any previous providers ? Pt's goal/plan: Pt states she would like to return home and feels her grandson will be home to assist her. Discussed options including home healthcare or SNF at discharge d/t pt requiring 1-2 assist with therapy. Pt receptive to these options. Discussed with SW. Pt states she would like to discuss dc disposition when her daughter arrives later this day. Will continue to monitor and assist with final discharge disposition determination. Eulogio Upton RN CM
[2022-07-26 11:04] VITALS: BP 122/82; PULSE 108; RESP 18; TEMP 36.6; O2SAT 95
[2022-07-26 12:06] LABS: Bedside Glucose 119 mg/dL (74-106)
--- NOTE | 2022-07-26 14:06 | CASEMGMT ---
Discharge Planning SNF list created and sent to SW. Linette Sánchez, Discharge Planning Asst.
[2022-07-26] MEDS: Methocarbamol 750 MG Tablet PO (14:41)
--- NOTE | 2022-07-26 15:02 | CASEMGMT ---
Addendum entered by Leah Posada 07/26/22 15:46: Social Work SW met with pt and dgt. Preferred SNF providers are 1. [facility] 2. [facility]. If these facilities are unable to accept, pt would like expanded list to [facility]. Referral to [facility] in TCU. SW will await determination of acceptance. Precert will be needed prior to discharge. Plan: TCU, pending acceptance and precert [facility] Original Note: Social Work SW met with pt and dgt/HCPOA Hazel to discuss discharge plan. Pt gave permission for conversation with pt present. Pt lives with dgt Hazel who works during the day. Pt's 16 and 14 year old grandchildren are home during the day but not responsible for pt's personal care. Per dgt, pt was independent with care needs recently, then pt became progressively weaker and was unable to get out of lift chair alone, and is now not able to care for herself. Pt dgt feels pt would benefit from SNF prior to returning home. A list of SNF providers including quality and resource use data and consistent with the patient?s preferred geographic region, medical needs, and insurance network were provided from the [employer] Guide. Pt and dgt to discuss list and SW will follow up for SNF choice. [facility]
[2022-07-26 15:47] VITALS: BP 131/79; PULSE 90; RESP 18; TEMP 36.6; O2SAT 94
[2022-07-26] MEDS: Insulin Lispro 100 UNIT/ML INSULN.PEN SC ×2 (16:42→20:45)
[2022-07-26] MEDS: Rivaroxaban 20 MG Tablet PO (16:42)
[2022-07-26 17:05] LABS: Bedside Glucose 160 mg/dL (74-106)
[2022-07-26 20:33] VITALS: BP 122/82; PULSE 92; RESP 18; TEMP 36.8; O2SAT 93
[2022-07-26] MEDS: Atorvastatin Calcium 10 MG Tablet PO (20:50)
[2022-07-26] MEDS: cycloBENZAPRine HCl 5 MG TABLET PO (20:50)
[2022-07-26 21:11] LABS: Bedside Glucose 165 mg/dL (74-106)
[2022-07-27 03:00] VITALS: BP 128/84; PULSE 55; RESP 20; TEMP 36.6; O2SAT 93
[2022-07-27] MEDS: Methocarbamol 750 MG Tablet PO (06:18)
[2022-07-27 06:37] LABS: Bedside Glucose 96 mg/dL (74-106)
--- NOTE | 2022-07-27 07:42 | PN.HOSP_ITS ---
Reason for Visit Reason for Visit: Diagnoses Sciatica, unspecified side (07/24/22) Adult failure to thrive (07/24/22) Subjective Subjective Pain better today. Objective Data Objective Data Vital Signs: Vital Signs Temp Pulse Resp BP Pulse Ox O2 Del Method O2 Flow Rate 36.6 C 55 L 20 H 128/84 H 93 Nasal Cannula 2 07/27/22 03:00 07/27/22 03:00 07/27/22 03:00 07/27/22 03:00 07/27/22 03:00 07/27/22 03:00 07/27/22 03:00 Oxygen Flow Rate (L/min) 2 Oxygen Delivery Method Nasal Cannula Weight: 115.666 kg Body Mass Index (BMI) 49.8 Intake & Output: Intake and Output for Last 24 Hours 07/25/22 07/26/22 07/27/22 23:59 23:59 23:59 Intake Total 4562.5 / 4562.5 3287.5 / 3287.5 Output Total 2350 / 2350 700 / 700 Balance 4562.5 / 4262.5 937.5 / 937.5 -700 / -700 Lab / Micro Data Result Diagrams: 07/26/22 06:10 07/26/22 06:10 Labs: Laboratory Results - last 24 hr 07/26/22 11:48: POC Glucose 119 H 07/26/22 16:39: POC Glucose 160 H 07/26/22 20:44: POC Glucose 165 H 07/27/22 06:15: POC Glucose 96 Physical Exam Const alert and no apparent distress Extremity Extremity Narrative: Nonpitting edema Neuro Neuro Narrative: DTRs 2 out of 4 in the lower extremities bilaterally. Sensation grossly intact lower extremities bilaterally. Assessment & Plan Assessment/Plan (1) Sciatica: PLAN: Back pain with right-sided sciatica with inability to complete ADLs PT/OT Continue with steroids and Valium to assist with pain MRI was ordered but patient states that she would not be able to complete that despite reassurance and that it would provide us additional information about what is going on with her back. Patient refusing to have MRI at this time. (2) Adult failure to thrive: PLAN: Worked with PT on 07/25. Ambulated 2 feet Likely will require SNF upon discharge PLAN: Plan Chronic condition: * HTN Continue spironolactone, furosemide * HLD continue atorvastatin * A-fib continue dilt and rivaroxaban * Type 2 diabetes ? We will hold her home medications? Continue sliding scale insulin? Accu-Cheks ACHS? We will make adjustments as necessary DVT: Joanna Charges/Coding Visit Charges Inpatient E&M: 81610 Subs Hosp L1
[2022-07-27 07:59] VITALS: BP 126/87; PULSE 77; RESP 18; TEMP 37.1; O2SAT 93
[2022-07-27] MEDS: predniSONE 20 MG Tablet 40 MG PO (08:04)
[2022-07-27 08:33] VITALS: O2SAT 95
[2022-07-27 09:57] VITALS: O2SAT 92
[2022-07-27] MEDS: Furosemide 20 MG Tablet PO (10:23)
[2022-07-27] MEDS: Spironolactone 25 MG Tablet PO (10:23)
[2022-07-27] MEDS: dilTIAZem CD 240 MG Capsule PO (10:23)
[2022-07-27 11:51] LABS: Bedside Glucose 139 mg/dL (74-106)
[2022-07-27 13:48] VITALS: BP 119/75; PULSE 86; RESP 18; TEMP 36.6; O2SAT 94
--- NOTE | 2022-07-27 14:36 | CASEMGMT ---
Social Work SW spoke with X[facility] in TCU and pt is able to be accepted. Precert to be started at this time. SW met with pt and updated. Pt agreeable to d/c plan. With pt permission, phone call to dgt Hazel and updated. Hazel agreeable. Plan: TCU, pending precert [facility]
[2022-07-27] MEDS: Insulin Lispro 100 UNIT/ML INSULN.PEN SC ×2 (17:04→20:20)
[2022-07-27] MEDS: Rivaroxaban 20 MG Tablet PO (17:04)
[2022-07-27 17:24] LABS: Bedside Glucose 198 mg/dL (74-106)
[2022-07-27 20:17] VITALS: BP 111/57; PULSE 58; RESP 18; TEMP 36.9; O2SAT 92
[2022-07-27] MEDS: Atorvastatin Calcium 10 MG Tablet PO (20:22)
[2022-07-27] MEDS: cycloBENZAPRine HCl 5 MG TABLET PO (20:22)
[2022-07-27 20:55] LABS: Bedside Glucose 163 mg/dL (74-106)
[2022-07-28 02:45] VITALS: BP 118/71; PULSE 65; RESP 18; TEMP 36.4; O2SAT 96
[2022-07-28] MEDS: Methocarbamol 750 MG Tablet PO (03:58)
[2022-07-28 06:44] LABS: Bedside Glucose 96 mg/dL (74-106)
--- NOTE | 2022-07-28 07:40 | PN.HOSP_ITS ---
Reason for Visit Reason for Visit: Diagnoses Sciatica, unspecified side (07/24/22) Adult failure to thrive (07/24/22) Subjective Subjective Pain in back and legs overall better. Feels little stiff in the morning but was able to get to the chair without difficulty. Objective Data Objective Data Vital Signs: Vital Signs Temp Pulse Resp BP Pulse Ox O2 Del Method O2 Flow Rate 36.4 C L 65 18 118/71 96 Room Air 2 07/28/22 02:45 07/28/22 02:45 07/28/22 02:45 07/28/22 02:45 07/28/22 02:45 07/28/22 02:45 07/27/22 09:57 Oxygen Flow Rate (L/min) 2 Oxygen Delivery Method Room Air Weight: 115.666 kg Body Mass Index (BMI) 49.8 Intake & Output: Intake and Output for Last 24 Hours 07/26/22 07/27/22 07/28/22 23:59 23:59 23:59 Intake Total 3287.5 / 3287.5 660 / 660 Output Total 2350 / 2350 1925 / 1925 Balance 937.5 / 937.5 -1265 / -1265 Lab / Micro Data Result Diagrams: 07/26/22 06:10 07/26/22 06:10 Labs: Laboratory Results - last 24 hr 07/27/22 11:33: POC Glucose 139 H 07/27/22 17:01: POC Glucose 198 H 07/27/22 20:20: POC Glucose 163 H 07/28/22 06:19: POC Glucose 96 Physical Exam Const alert and no apparent distress Constitutional Narrative: Up in chair. Eating breakfast. HEENT head/scalp atraumatic Assessment & Plan Assessment/Plan (1) Sciatica: PLAN: Back pain with right-sided sciatica with inability to complete ADLs PT/OT Continue with steroids and Valium to assist with pain MRI was ordered but patient states that she would not be able to complete that d espite reassurance and that it would provide us additional information about what is going on with her back. Patient refusing to have MRI at this time. (2) Adult failure to thrive: PLAN: Worked with PT on 07/25. Ambulated 2 feet Likely will require SNF upon discharge PLAN: Plan Chronic condition: * HTN Continue spironolactone, furosemide * HLD continue atorvastatin * A-fib continue dilt and rivaroxaban * Type 2 diabetes ? We will hold her home medications? Continue sliding scale insulin? Accu-Cheks ACHS? We will make adjustments as necessary DVT: Xarelto Disposition: plan for TCU pending insurance authorization. Charges/Coding Visit Charges Inpatient E&M: 64637 Subs Hosp L1
[2022-07-28] MEDS: predniSONE 20 MG Tablet 40 MG PO (08:09)
[2022-07-28 09:00] VITALS: BP 116/78; PULSE 100; RESP 17; TEMP 36.6; O2SAT 93
--- NOTE | 2022-07-28 09:19 | TREXTCAR_ITS ---
Diet Diet Order/Speech Therapy: 07/24/22 17:33 Diet: Cardiac - Heart Healthy Food consistency:: Regular Liquid Consistency:: Regular/Thin Routine Orders/Code Status Code Status: DNRCC-A (no intubation) Therapies Weight Bearing: Full weight bearing Physical Therapy: Eval and Treat Occupational Therapy: Eval and Treat Problem/Diagnosis (1) Sciatica: Status: Acute Code(s): M54.30 - Sciatica, unspecified side Plan: Back pain with right-sided sciatica with inability to complete ADLs PT/OT Continue with steroids and Valium to assist with pain MRI was ordered but patient states that she would not be able to complete that despite reassurance and that it would provide us additional information about what is going on with her back. Patient refusing to have MRI at this time. (2) Adult failure to thrive: Status: Acute Code(s): R62.7 - Adult failure to thrive Plan: Worked with PT on 07/25. Ambulated 2 feet Likely will require SNF upon discharge Plan Chronic condition: * HTN Continue spironolactone, furosemide * HLD continue atorvastatin * A-fib continue dilt and rivaroxaban * Type 2 diabetes ? We will hold her home medications? Continue sliding scale insulin? Accu-Cheks ACHS? We will make adjustments as necessary DVT: Xarelto Disposition: plan for TCU pending insurance authorization. Allergies/Procedures Done in Hospital Allergies No Known Allergies Allergy (Verified 07/24/22 12:01) Type of Care/Length of Stay Estimated LOS: Convalescent Care Less Than 30 days Type of Care Needed: Skilled Rehab Potential: Fair Prognosis: Fair Additional Orders/Day of Discharge Day of Discharge: 07/28/22 Dietary and Speech Recommendations Dietitian Recommendations/Changes: continue cardiac diet as tolerated; add 1600 calorie controlled/consistent CHO diet if hyperglycemia occurs Discharge Plan Admission Admit Date/Time: 07/24/22 15:35 Primary Reason for Your Visit: back pain Attending Provider: Gian Rodríguez Primary Care Provider: Delia Ibanez NP Consulting Providers: Michi Shane Discharge Orders/Prescriptions Prescriptions: New prednisone 20 mg Tablet 40 mg PO BREAKFAST Qty: 1 0RF insulin lispro [Humalog KwikPen Insulin] 100 unit/mL Insulin Pen See Protocol subcut ACHS Qty: 0 0RF Protocol: 3. Sliding Scale Insulin Med Dosing Condition: 150-189 mg/dl = 1 unit Condition: 190-229 mg/dl = 2 units Condition: 230-269 mg/dl = 3 units Condition: 270-309 mg/dl = 4 units Condition: 310-349 mg/dl = 5 units Condition: 350-399 mg/dl = 6 units Condition: 400-449 mg/dl = 7 units Condition: Greater than 449 call physician Protocol Text: - Use for Total Daily Dose of Insulin 37-55 units - Obsese, infected, or steroid patients MEDIUM DOSING ALGORITHIM Continued atorvastatin 10 mg Tablet 10 mg PO QHS diltiazem HCl 240 mg Capsule,Extended Release 24 Hr 240 mg PO DAILY spironolactone 25 mg Tablet 25 mg PO DAILY furosemide [Lasix] 20 mg Tablet 20 mg PO DAILY iron 18 mg Tablet 18 mg PO DAILY cholecalciferol (vitamin D3) [Vitamin D3] 10 mcg (400 unit) Capsule 10 mcg PO DAILY cyclobenzaprine 5 mg Tablet 5 mg PO QHS metoprolol tartrate 25 mg Tablet 25 mg PO BID Xarelto 20 mg Tablet 20 mg PO DAILY Rx Instructions: must administer with evening meal hydrocodone-acetaminophen 5-325 mg tablet 1 tab PO Q6H PRN PRN (Reason: Pain) 3 Days Qty: 12 0RF Discontinued fluconazole 100 mg Tablet 100 mg PO DAILY tramadol 50 mg Tablet 50 mg PO BID PRN (Reason: Pain) glipizide 2.5 mg Tablet Extended Release 24hr 2.5 mg PO DAILY benazepril 10 mg Tablet 10 mg PO DAILY Multi For Her PO.IVFORM DAILY Referrals / Follow Up: Delia Ibanez [employer], [facility] [Primary Care Provider] - Within 2 Weeks Disposition Disposition (needs filled in before D/C Order can be placed): Snf Facility
[2022-07-28] MEDS: Spironolactone 25 MG Tablet PO (09:41)
[2022-07-28] MEDS: Furosemide 20 MG Tablet PO (09:41)
[2022-07-28] MEDS: dilTIAZem CD 240 MG Capsule PO (09:41)
[2022-07-28 11:26] LABS: Bedside Glucose 261 mg/dL (74-106)
[2022-07-28] MEDS: Insulin Lispro 100 UNIT/ML INSULN.PEN SC (11:37)
--- NOTE | 2022-07-28 13:45 | PCM.DC.SUM ---
Providers Date of Admission: 07/24/22 Primary Care Physician: LILLIAM Ulloa Reason For Visit: BACK PAIN WITH RIGHT-SIDED SCIATICA Diagnosis Discharge Diagnosis (1) Sciatica: Status: Acute Code(s): M54.30 - Sciatica, unspecified side Plan: Back pain with right-sided sciatica with inability to complete ADLs PT/OT Continue with steroids and Valium to assist with pain MRI was ordered but patient states that she would not be able to complete that despite reassurance and that it would provide us additional information about what is going on with her back. Patient refusing to have MRI at this time. (2) Adult failure to thrive: Status: Acute Code(s): R62.7 - Adult failure to thrive Plan: Worked with PT on 07/25. Ambulated 2 feet Likely will require SNF upon discharge Plan Chronic condition: HTN Continue spironolactone, furosemide HLD continue atorvastatin A-fib continue dilt and rivaroxaban Type 2 diabetes ? We will hold her home medications? Continue sliding scale insulin? Accu-Cheks ACHS? We will make adjustments as necessary DVT: Xarelto Disposition: plan for TCU pending insurance authorization. Medications at Discharge Home Medications atorvastatin 10 mg tablet 10 mg PO QHS 07/11/22 cholecalciferol (vitamin D3) 10 mcg (400 unit) capsule (Vitamin D3) 10 mcg PO DAILY 07/11/22 cyclobenzaprine 5 mg tablet 5 mg PO QHS 07/11/22 diltiazem HCl 240 mg capsule,24 hr,extended release 240 mg PO DAILY 07/11/22 furosemide 20 mg tablet (Lasix) 20 mg PO DAILY 07/11/22 iron 18 mg tablet 18 mg PO DAILY 07/11/22 metoprolol tartrate 25 mg tablet 25 mg PO BID 07/11/22 rivaroxaban 20 mg tablet (Xarelto) 20 mg PO DAILY 07/11/22 spironolactone 25 mg tablet 25 mg PO DAILY 07/11/22 hydrocodone-acetaminophen 5-325mg 5mg-325mg 1 tab PO Q6H PRN pain 3 days #12 tabs 07/28/22 insulin lispro 100 unit/mL subcutaneous pen (Humalog KwikPen (U-100) Insulin) See Protocol subcut ACHS #0 mL 07/28/22 prednisone 20 mg tablet 40 mg PO BREAKFAST #1 TAB 07/28/22 Hospital Course Operations None Procedures None Weight / BMI Weight Weight: 115.666 kg Body Mass Index (BMI) 49.8 ABG / Lab / Microbiology Data Result Diagrams: 07/26/22 06:10 07/26/22 06:10 Laboratory: Laboratory Results - last 24 hr 07/27/22 17:01: POC Glucose 198 H 07/27/22 20:20: POC Glucose 163 H 07/28/22 06:19: POC Glucose 96 07/28/22 11:02: POC Glucose 261 H Meaningful Use Info Meaningful Use Diagnoses (Choose all that apply): None applicable Discharge Plan Admission Admit Date/Time: 07/24/22 15:35 Primary Reason for Your Visit: back pain Attending Provider: Gian Rodríguez Primary Care Provider: Delia Ibanez NP Consulting Providers: Michi Shane Discharge Orders/Prescriptions Prescriptions: New prednisone 20 mg Tablet 40 mg PO BREAKFAST Qty: 1 0RF insulin lispro [Humalog KwikPen Insulin] 100 unit/mL Insulin Pen See Protocol subcut ACHS Qty: 0 0RF Protocol: 3. Sliding Scale Insulin Med Dosing Condition: 150-189 mg/dl = 1 unit Condition: 190-229 mg/dl = 2 units Condition: 230-269 mg/dl = 3 units Condition: 270-309 mg/dl = 4 units Condition: 310-349 mg/dl = 5 units Condition: 350-399 mg/dl = 6 units Condition: 400-449 mg/dl = 7 units Condition: Greater than 449 call physician Protocol Text: - Use for Total Daily Dose of Insulin 37-55 units - Obsese, infected, or steroid patients MEDIUM DOSING ALGORITHIM hydrocodone-acetaminophen 5-325 mg tablet 1 tab PO Q6H PRN (Reason: pain) 3 Days Qty: 12 0RF Continued atorvastatin 10 mg Tablet 10 mg PO QHS diltiazem HCl 240 mg Capsule,Extended Release 24 Hr 240 mg PO DAILY spironolactone 25 mg Tablet 25 mg PO DAILY furosemide [Lasix] 20 mg Tablet 20 mg PO DAILY iron 18 mg Tablet 18 mg PO DAILY cholecalciferol (vitamin D3) [Vitamin D3] 10 mcg (400 unit) Capsule 10 mcg PO DAILY cyclobenzaprine 5 mg Tablet 5 mg PO QHS metoprolol tartrate 25 mg Tablet 25 mg PO BID Xarelto 20 mg Tablet 20 mg PO DAILY Rx Instructions: must administer with evening meal Discontinued fluconazole 100 mg Tablet 100 mg PO DAILY tramadol 50 mg Tablet 50 mg PO BID PRN (Reason: Pain) glipizide 2.5 mg Tablet Extended Release 24hr 2.5 mg PO DAILY benazepril 10 mg Tablet 10 mg PO DAILY Multi For Her PO.IVFORM DAILY hydrocodone-acetaminophen 5-325 mg tablet 1 tab PO Q6H PRN PRN (Reason: Pain) 3 Days Qty: 12 0RF Referrals / Follow Up: Delia Ibanez [employer], [employer] [Primary Care Provider] - Within 2 Weeks Disposition Disposition (needs filled in before D/C Order can be placed): Alf Facility Charges/Coding Visit Charges Inpatient E&M: 23257 Disch Hosp
[2022-07-28 14:00] VITALS: BP 108/66; PULSE 88; RESP 18; TEMP 36.6; O2SAT 93
--- NOTE | 2022-07-28 15:41 | CASEMGMT ---
Social Work Precert has been obtained for admission to TCU. Physician updated and pt is ready for discharge today. SW updated pt and pt dgt and they are agreeable to dc plan. Discharge orders faxed to TCU. Disposition: TCU, skilled level of care [facility]
== END 2022-07-28 16:24 | disposition skilled nursing facility (03) | DRG 552 ==
LOC: ED 14:58 → MS3 16:09
PROVIDERS: Admitting Provider Family Medicine; Emergency Provider Emergency Medicine; PCP Internal Medicine
DX: M54.41 Lumbago with sciatica, right side (principal); Z68.42 Body mass index [BMI] 45.0-49.9, adult; R62.7 Adult failure to thrive; I48.91 Unspecified atrial fibrillation; Z79.4 Long term (current) use of insulin; E11.9 Type 2 diabetes mellitus without complications; E66.01 Morbid (severe) obesity due to excess calories; I10 Essential (primary) hypertension; E78.5 Hyperlipidemia, unspecified; Z66 Do not resuscitate
CPT/HCPCS: 36415; 80048; 81001; 82962; 85025; 87811; 97110; 97116; 97162; 97165; 97530; 97535; 99283; J7030; A4216; J2405

== ENCOUNTER 2022-07-28 16:36 | Inpatient (IN) | payer MEDICARE, SELFPAY ==
[2022-07-28 17:01] VITALS: BP 150/72; PULSE 91; RESP 18; TEMP 36.8; O2SAT 93; BMI 50.5
[2022-07-28 20:07] VITALS: BP 116/56; PULSE 96
[2022-07-28] MEDS: Metoprolol Tartrate 25 MG Tablet PO (20:07)
[2022-07-28 21:13] VITALS: PULSE 100; RESP 16; O2SAT 96
--- NOTE | 2022-07-28 21:30 | HP.PCM_ITS ---
HPI - General General Date of Admission: 07/28/22 Date of Service: 07/28/22 Chief Complaint: Here for rehabilitation. HPI Narrative 07/24/2022 EYAD SARMIENTO, is a 76 Female who presents to [facility] Emergency Department with back, leg pain. Back, leg pain for 2 weeks, PCP prescribed muscle relaxer, pain medication. Presented to ED, treated for sciatica. Recent fall, no injury, hard time getting up from sitting position. BUN 36, Creatinine 1.23. 07/24/2022 Admit to Hospital. Severe back pain, right sciatica, treated with steroids, Valium. PT/OT for debility. Sliding scale insulin for Diabetes Mellitus II. 07/25/2022 Pain improved. Order MRI LS spine. 07/26/2022 Low back pain radiating down left leg now. Patient refused MRI LS spine. Walked 2 feet. 07/27/2022 Pain better today. PT/OT SNF. 07/28/2022 Admit to TCU with debility, here for rehabilitation, strengthening, prior to discharge home with daughter Hazel. [facility] Medical History A-fib Diabetes Hernia of abdominal wall Hypertension Sleep apnea Home Medications atorvastatin 10 mg tablet 10 mg PO QHS Cholesterol 07/11/22 [History Last Taken Unknown] cholecalciferol (vitamin D3) 10 mcg (400 unit) capsule (Vitamin D3) 10 mcg PO DAILY Supplement 07/11/22 [History Last Taken Unknown] cyclobenzaprine 5 mg tablet 5 mg PO QHS Muscle relaxer 07/11/22 [History Last Taken Unknown] diltiazem HCl 240 mg capsule,24 hr,extended release 240 mg PO DAILY BP 07/11/22 [History Last Taken Unknown] furosemide 20 mg tablet (Lasix) 20 mg PO DAILY Heart 07/11/22 [History Last Taken Unknown] iron 18 mg tablet 18 mg PO DAILY Supplement 07/11/22 [History Last Taken Unknown] metoprolol tartrate 25 mg tablet 25 mg PO BID BP 07/11/22 [History Last Taken Unknown] rivaroxaban 20 mg tablet (Xarelto) 20 mg PO DAILY Anticoagulant 07/11/22 [History Last Taken Unknown] spironolactone 25 mg tablet 25 mg PO DAILY Heart 07/11/22 [History Last Taken Unknown] hydrocodone-acetaminophen 5-325mg 5mg-325mg 1 tab PO Q6H PRN pain 3 days #12 tabs 07/28/22 [Rx Last Taken Unknown] insulin lispro 100 unit/mL subcutaneous pen (Humalog KwikPen (U-100) Insulin) See Protocol subcut ACHS Diabetes 07/28/22 [History Last Taken Unknown] prednisone 20 mg tablet 40 mg PO BREAKFAST Sciatica Pain 07/28/22 [History Last Taken Unknown] Allergy/AdvReac Type Severity Reaction Status Date / Time No Known Allergies Allergy Verified 07/24/22 12:01 Family History Other Diabetes Heart disease Hypertension Surgical History History of hysterectomy Social History (Updated 07/28/22 @ 21:[address] Kristopher Celaya MD) household members: children and other details: Daughter Hazel. Smoking Status: Former smoker alcohol intake: never substance use type: does not use ROS Constitutional Constitutional: Denies chills, fever(s) or weight gain ENT HEENT: Denies headache(s), nasal congestion or nasal discharge Cardiovascular Cardiovascular: Denies chest pain or palpitations Respiratory/Chest Respiratory/Chest: Denies cough, excessive phlegm production or shortness of breath with exertion Gastrointestinal Gastrointestinal: Denies abdominal pain, nausea or vomiting Genitourinary Genitourinary: Denies dysuria Musculoskeletal Musculoskeletal: Denies joint pain or joint swelling Integumentary Integumentary: Denies rash or wounds Neurologic Neurologic: Denies focal weakness, numbness or tingling Psychiatric Psychiatric: Denies anxiety, auditory hallucinations, depression, homicidal ideation or suicidal ideation Vital Signs Vital Signs Vital Signs: 07/28/22 17:01 07/28/22 20:07 Temperature 98.2 F Temperature Source Oral Pulse Rate 91 96 Respiratory Rate 18 Blood Pressure 150/72 H 116/56 L Blood Pressure Mean 98 Blood Pressure Source Monitor Blood Pressure Position Semi-Fowlers Blood Pressure Location Right Arm Pulse Ox 93 Oxygen Delivery Method Room Air Physical Exam Const alert General Appearance: cooperative HEENT normocephalic Eyes PERRL and EOMs intact bilaterally Neck supple, no JVD and no carotid bruits Resp normal respiratory effort, normal air movement and clear to auscultation bilaterally Cardio regular rate and regular rhythm GI normal to inspection, nondistended, normoactive bowel sounds, non-tender and non-distended Extremity normal capillary refill General Extremity: Negative for edema Skin no rashes or lesions noted General Skin Exam: no breakdown Psych affect normal Appearance: appropriate Assessment & Plan Assessment/Plan (1) Debility: (2) Adult failure to thrive: (3) Intractable low back pain: (4) Sciatica: (5) Atrial fibrillation: (6) Hypertension: (7) Hyperlipidemia: (8) Diabetes mellitus: (9) Iron deficiency anemia: (10) Ventral hernia: PLAN: Plan 76 year old female with below past medical history hospitalized for intractable low back pain, sciatica, admitted to TCU with debility, here for rehabilitation, strengthening, prior to discharge home with daughter Hazel. * Debility - PT/OT. * Pain - Tylenol 1000mg q8, Tramadol 50mg q6h prn pain (1-5), Oxycodone 5mg q4h prn pain (6-10). * Bowel - senna/colace 2 tablets bid, Dulcolax 10mg pr x 1 prn, MOM 30ml po x 1 prn. * Adult immunization - Administer pneumonia vaccine, covid19 vaccine, flu vaccine as appropriate. * DVT prophylaxis - on Xarelto. * Hyperlipidemia - Atorvastatin 10mg qhs. * Muscle spasm - Flexeril 5mg qhs. * Atrial fibrillation - Metoprolol 25mg bid, Diltiazem CD 240mg daily, Xarelto 20mg daily. * Chronic diastolic heart failure - Metoprolol 25mg bid, Aldactone 25mg daily, Furosemide 20mg daily. * Low back pain - Prednisone 40mg x 1 dose. * Vitamin D deficiency - D3 25mcg daily.
[2022-07-28 21:37] LABS: Bedside Glucose 188 mg/dL (74-106)
[2022-07-28] MEDS: cycloBENZAPRine HCl 5 MG TABLET PO (21:50)
[2022-07-28] MEDS: Atorvastatin Calcium 10 MG Tablet PO (21:50)
[2022-07-28] MEDS: Senna/Docusate Sodium 1 Tablet 2 TABLET PO (22:13)
[2022-07-28] MEDS: Acetaminophen 500 MG Tablet 1000 MG PO (22:13)
[2022-07-29] MEDS: oxyCODONE 5 MG Tablet PO (02:27)
[2022-07-29 05:51] LABS: Absolute Lymphocyte Count 1.33 X10^3/uL (0.83-4.51); Absolute Neutrophil Count 7.7 X10^3/uL (2.0-7.7); Basophil# 0.02 X10^3/uL; Basophil% 0.2 % (0-1); Eosinophil# 0.02 X10^3/uL; Eosinophils% 0.2 % (0-5); Hematocrit 29.8 % (37-47); Hemoglobin 9.3 g/dL (12.0-15.0); Lymphocyte # 1.33 X10^3/ul (0.83-4.51); Lymphocyte % 12.9 % (19-41); Mean Corp Hgb Conc 31.2 g/dL (32-36); Mean Corpuscular Hgb 29.5 pg (27.0-32.0); Mean Corpuscular Volume 94.6 fL (81-99); Mean Platelet Vol. 8.9 fl (6.2-12.0); Monocyte# 1.11 X10^3/uL; Monocyte% 10.8 % (0-10); NRBC Flagged by Analyzer 0 % (0-5); Neutrophil % 74.6 % (47-70); Platelet Count 278 K/mm3 (150-450); RBC Distribution Width SD 47.8 fl (35.1-43.9); Red Blood Count 3.15 M/mm3 (4.2-5.4); White Blood Count 10.3 K/mm3 (4.4-11.0)
[2022-07-29] MEDS: Cholecalciferol (VIT D3) 25 MCG TABLET (1,000 UNITS) PO (06:04)
[2022-07-29] MEDS: Acetaminophen 500 MG Tablet 1000 MG PO ×3 (06:04→20:53)
[2022-07-29 06:05] VITALS: BP 113/74; PULSE 71
[2022-07-29] MEDS: dilTIAZem CD 240 MG Capsule PO (06:05)
[2022-07-29] MEDS: Furosemide 20 MG Tablet PO (06:05)
[2022-07-29] MEDS: Metoprolol Tartrate 25 MG Tablet PO ×2 (06:05→17:10)
[2022-07-29] MEDS: 0.9% Saline Lock 10 ML Syringe IV (06:06)
[2022-07-29] MEDS: Nystatin Powder 15gm Bottle 1 APPLIC TOPICAL ×2 (06:10→17:12)
[2022-07-29] MEDS: traMADol 50 MG Tablet PO (06:13)
[2022-07-29 06:14] LABS: Bedside Glucose 105 mg/dL (74-106)
[2022-07-29 06:19] VITALS: BMI 50.5
--- NOTE | 2022-07-29 06:29 | NURSING ---
IV dc'ed to LFA d/t resistance w/ attempt to flush. Angiocath intact. Site bled for a few minutes. Firm pressure applied. No further bleeding noted. Two folded 2x2s applied and secured w/ two pieces of hypoallergenic tape. Purple discoloration faded after site finished bleeding. Will continue to monitor.
[2022-07-29 06:32] LABS: Anion Gap 6 (5-15); BUN 29 mg/dL (7-18); BUN/Creat Ratio 24.4 RATIO (10-20); Chloride 104 mmol/L (98-107); Creatinine, Serum 1.19 mg/dL (0.55-1.02); EST Glomerular Filtration Rate 47 mL/min (>60); Est Glom Filt Rate - Afr Amer 56 mL/min (>60); Estimated Creatinine Clearance 28.44 ml/min; Glucose 99 mg/dL (74-106); Potassium 3.8 mmol/L (3.5-5.1); Sodium Level 138 mmol/L (136-145)
[2022-07-29] MEDS: predniSONE 20 MG Tablet 40 MG PO (10:05)
[2022-07-29] MEDS: Spironolactone 25 MG Tablet PO (10:06)
[2022-07-29 11:31] LABS: Bedside Glucose 173 mg/dL (74-106)
[2022-07-29] MEDS: Tuberculin,Purif.prot.deriv. 50 TU/ML Vial 0.1 ML ID (15:04)
[2022-07-29 15:25] VITALS: BP 117/78; PULSE 81; RESP 17; TEMP 36.8; O2SAT 95
[2022-07-29 16:28] LABS: Bedside Glucose 202 mg/dL (74-106)
[2022-07-29] MEDS: Senna/Docusate Sodium 1 Tablet 2 TABLET PO (17:09)
[2022-07-29 17:10] VITALS: BP 120/84; PULSE 81
[2022-07-29] MEDS: Rivaroxaban 20 MG Tablet PO (17:10)
--- NOTE | 2022-07-29 17:30 | CASEMGMT ---
Social Work Met with patient to complete initial assessment. Introduced self and role. Discussed code status and MOLST form. Pt wishes to be full code. MOLST placed in . folder. Verbally updated nursing. Educated pt to [facility] insurance and continued stay is not guaranteed with each review. Pt's goal is to return home living with dtr and two grandchildren. SW to continue to follow for DC planning. Zoë Joseph, STEAMSHIP AGENT GRAIN ELEVATOR CLERK
[2022-07-29] MEDS: Atorvastatin Calcium 10 MG Tablet PO (20:53)
[2022-07-29] MEDS: cycloBENZAPRine HCl 5 MG TABLET PO (20:53)
[2022-07-29 22:42] LABS: Bedside Glucose 135 mg/dL (74-106)
[2022-07-30] MEDS: oxyCODONE 5 MG Tablet PO ×2 (01:25→05:50)
[2022-07-30] MEDS: Acetaminophen 500 MG Tablet 1000 MG PO ×3 (05:50→20:45)
[2022-07-30] MEDS: Furosemide 20 MG Tablet PO (05:50)
[2022-07-30 05:51] VITALS: BP 136/85; PULSE 96
[2022-07-30] MEDS: Metoprolol Tartrate 25 MG Tablet PO ×2 (05:51→17:59)
[2022-07-30] MEDS: Cholecalciferol (VIT D3) 25 MCG TABLET (1,000 UNITS) PO (05:51)
[2022-07-30] MEDS: dilTIAZem CD 240 MG Capsule PO (05:51)
[2022-07-30] MEDS: Nystatin Powder 15gm Bottle 1 APPLIC TOPICAL ×2 (05:51→17:59)
[2022-07-30] MEDS: Senna/Docusate Sodium 1 Tablet 2 TABLET PO ×2 (05:51→18:00)
--- NOTE | 2022-07-30 05:55 | NURSING ---
Pt c/o increased muscle spasms. MD to be updated.
[2022-07-30 06:46] LABS: Bedside Glucose 106 mg/dL (74-106)
[2022-07-30] MEDS: Spironolactone 25 MG Tablet PO (07:29)
--- NOTE | 2022-07-30 10:58 | NURSING ---
Hub Cutter Apprentice Note; Activity Asset: Brit Stanton is independent in her choice of daily activities. She did state she has a hard time seeing even w/her glasses. She will read the news paper and daily chronicle however takes longer to do so. At this time she is not interested in group activities however welcomes visit from the poll watcher and therapy if she is awake. Staff will continue to offer her small activities in room and remind her of group activities and respect her right to say No. I did offer her a radio or word puzzles and she declined at this time.
[2022-07-30 11:24] LABS: Bedside Glucose 143 mg/dL (74-106)
--- NOTE | 2022-07-30 12:40 | NS ---
Res dislikes spinach and raw carrots. Provided copy of daily specials menu w/ instructions on how to order.
--- NOTE | 2022-07-30 13:19 | PHA.CONS_ITS ---
TCU RX Drug Regimen Review Subjective: TCU Admission. DV 76 YOF presented to [facility] ED on 07/24 with back and leg pain. Admitted to TCU on 07/28 with debility, here for rehab and strengthening. Objective: Allergies No Known Allergies Allergy (Verified 07/24/22 12:01) Current Medications Generic Name Dose Route Start Last Admin Trade Name Freq PRN Reason Stop Dose Admin Acetaminophen 1,000 mg 07/28/22 22:00 07/30/22 05:50 Acetaminophen 500 Mg Tablet PO 1,000 mg Q8 HALLIE Administration Atorvastatin Calcium 10 mg 07/28/22 22:00 07/29/22 20:53 Atorvastatin Calcium 10 Mg Tablet PO 10 mg QHS HALLIE Administration Bisacodyl 10 mg 07/28/22 21:44 Bisacodyl 10 Mg Suppository RC X1 PRN Constipation Cholecalciferol 25 mcg 07/29/22 06:00 07/30/22 05:51 Cholecalciferol (Vit D3) 25 Mcg Tablet (1,000 Units) PO 25 mcg DAILY HALLIE Administration Cyclobenzaprine HCl 5 mg 07/30/22 14:00 Cyclobenzaprine Hcl 5 Mg Tablet PO TID HALLIE Diltiazem HCl 240 mg 07/29/22 06:00 07/30/22 05:51 Diltiazem Cd 240 Mg Capsule PO 240 mg DAILY HALLIE Administration Furosemide 20 mg 07/29/22 06:00 07/30/22 05:50 Furosemide 20 Mg Tablet PO 20 mg DAILY HALLIE Administration Magnesium Hydroxide 30 ml 07/28/22 21:44 Magnesium Hydroxide 30 Ml Udc PO X1 PRN CONSTIPATION Metoprolol Tartrate 25 mg 07/28/22 18:00 07/30/22 05:51 Metoprolol Tartrate 25 Mg Tablet PO 25 mg BID HALLIE Administration Nystatin 1 applic 07/29/22 06:00 07/30/22 05:51 Nystatin Powder 15gm Bottle TOPICAL 1 applic BID [facility] Administration Protocol Oxycodone HCl 5 mg 07/28/22 21:44 07/30/22 05:50 Oxycodone 5 Mg Tablet PO 5 mg Q4H PRN PRN Administration Pain Score 6-10 Rivaroxaban 20 mg 07/29/22 17:00 07/29/22 17:10 Rivaroxaban 20 Mg Tablet PO 20 mg DAILY@DINNER [facility] Administration Senna/Docusate Sodium 2 tablet 07/28/22 21:45 07/30/22 05:51 Senna/Docusate Sodium 1 Tablet PO 2 tablet BID HALLIE Administration Sodium Chloride 10 - 40 ml 07/28/22 21:25 07/29/22 06:06 0.9% Saline Lock 10 Ml Syringe IV 10 ml UD PRN Administration SALINE FLUSH Spironolactone 25 mg 07/29/22 08:00 07/30/22 07:29 Spironolactone 25 Mg Tablet PO 25 mg 0800 HALLIE Administration Tramadol HCl 50 mg 07/28/22 21:44 07/29/22 06:13 Tramadol 50 Mg Tablet PO 50 mg Q6H PRN PRN Administration Pain Score 1-5 Tuberculin PPD 0.1 ml 08/05/22 10:00 Tuberculin,Purif.Prot.Deriv. 50 Tu/Ml Vial ID 08/05/22 10:01 X1 ONE Problem List (Last Reviewed 07/28/22 @ 21:[address] Kristopher Celaya MD) Ventral hernia (Acute) Iron deficiency anemia (Acute) Diabetes mellitus (Acute) Hyperlipidemia (Acute) Hypertension (Chronic) Atrial fibrillation (Acute) Intractable low back pain (Acute) Debility (Acute) Sciatica (Acute) Adult failure to thrive (Acute) Vital Signs Temp Pulse Resp BP Pulse Ox O2 Del Method 98.2 F 96 17 136/85 H 95 Room Air 07/29/22 15:25 07/30/22 05:51 07/29/22 15:25 07/30/22 05:51 07/29/22 15:25 07/29/22 20:28 Oxygen Delivery Method Room Air Weight: 116.755 kg Body Mass Index (BMI) 50.5 Sodium 138 mmol/L (136-145) 07/29/22 05:07 Potassium 3.8 mmol/L (3.5-5.1) 07/29/22 05:07 Chloride 104 mmol/L (98-107) 07/29/22 05:07 Carbon Dioxide 28.0 mmol/L (21.0-32.0) 07/29/22 05:07 Anion Gap 6 (5-15) 07/29/22 05:07 BUN 29 mg/dL (7-18) H 07/29/22 05:07 Creatinine 1.19 mg/dL (0.55-1.02) H 07/29/22 05:07 Est GFR (MDRD) Af Amer 56 mL/min (>60) L 07/29/22 05:07 Est GFR (MDRD) Non-Af 47 mL/min (>60) L 07/29/22 05:07 BUN/Creatinine Ratio 24.4 RATIO (10-20) H 07/29/22 05:07 Glucose 99 mg/dL (74-106) 07/29/22 05:07 Assessment/Plan: 1. Pain: acetaminophen 1000mg PO Q8, tramadol 50mg PO Q6H PRN pain (1-5), Oxycodone 5mg PO Q4H PRN pain (6-10). Monitor: pain levels, constipation, sedation, prn medication use. To date, patient has used 3 oxycodone doses (for pain levels 6-8) and 1 tramadol dose (for pain level of 6) 2. Bowel: senna/docusate 2 tablets bid, bisacodyl 10mg RC x 1 PRN constipation, MOM 30ml PO x 1 PRN constipation. Monitor: increase or decreased constipation or diarrhea, prn medication use. To date, patient has not used either prn medications and has not had a documented bowel movement. 3. Muscle spasm: cyclobenzaprine 5mg PO TID. Monitor: drowsiness, fatigue, headache, dizziness, anticholinergic side effects (BEERs medication), delirium/dementia (BEERs medication). 4. Hyperlipidemia: atorvastatin 10mg PO QHS. Patient does not have a lipid panel on file, please consider obtaining one or adding one from a different source. Thanks. Please continue to monitor for muscle pain. 5. Chronic diastolic heart failure/atrial fibrillation: metoprolol tartrate 25mg PO BID, spironolactone 25mg PO daily, furosemide 20mg PO daily, diltiazem CD 240mg PO daily, rivaroxaban 20mg PO dinner. Monitor: HR (71-100), BP (113-150/56-85), dizziness, headaches, potassium (last 3.8mmol/L), renal function (CrCl with adj BW 46.2mL/min), increased bleeding, bruising, hemoglobin (last 9.3g/dL), fall risk. 6. Skin integrity: Nystatin powder topical application BID. Please continue to monitor. 7. Vitamin D Deficiency: cholecalciferol 25mcg PO daily. Please consider ordering a vitamin D level as there is no level in the chart. Thanks. Assessment/Plan for indications treated with psychotropic medications: None Medical chart and medication regimen reviewed. The following medication irregularities or issues were identified: *1. Atorvastatin 10mg PO QHS. Patient does not have a lipid panel on file, please consider obtaining one or adding one from a different source. Thanks. Please continue to monitor for muscle pain. *2. Cholecalciferol 25mcg PO daily. Please consider ordering a vitamin D level as there is no level in the chart. Thanks. Date of Note:: 07/30/22
[2022-07-30] MEDS: cycloBENZAPRine HCl 5 MG TABLET PO ×2 (13:31→20:45)
[2022-07-30 15:48] VITALS: BP 122/62; PULSE 85; RESP 17; TEMP 36.9; O2SAT 96
[2022-07-30 16:46] LABS: Bedside Glucose 231 mg/dL (74-106)
[2022-07-30] MEDS: Rivaroxaban 20 MG Tablet PO (17:58)
[2022-07-30 17:59] VITALS: PULSE 85
[2022-07-30] MEDS: Atorvastatin Calcium 10 MG Tablet PO (20:45)
[2022-07-30] MEDS: traMADol 50 MG Tablet PO (21:01)
[2022-07-30 21:26] LABS: Bedside Glucose 170 mg/dL (74-106)
[2022-07-31] MEDS: oxyCODONE 5 MG Tablet PO ×4 (01:03→18:04)
[2022-07-31] MEDS: Senna/Docusate Sodium 1 Tablet 2 TABLET PO ×2 (04:27→18:04)
[2022-07-31] MEDS: MENTHOL 226.8 GM JAR 1 APPLIC TOPICAL (04:27)
[2022-07-31] MEDS: cycloBENZAPRine HCl 5 MG TABLET PO ×3 (04:27→20:53)
[2022-07-31] MEDS: Acetaminophen 500 MG Tablet 1000 MG PO ×3 (04:27→20:53)
[2022-07-31] MEDS: dilTIAZem CD 240 MG Capsule PO (04:27)
[2022-07-31] MEDS: Cholecalciferol (VIT D3) 25 MCG TABLET (1,000 UNITS) PO (04:28)
[2022-07-31] MEDS: Furosemide 20 MG Tablet PO (04:28)
[2022-07-31 04:30] VITALS: PULSE 90
[2022-07-31] MEDS: Metoprolol Tartrate 25 MG Tablet PO ×2 (04:30→18:05)
[2022-07-31] MEDS: traMADol 50 MG Tablet PO (04:40)
--- NOTE | 2022-07-31 04:45 | NURSING ---
pt unable to stand to pivot to [facility] w/3 staff, severe pain from sciatica down her legs, unable to tolerate bedpan too painful made pt scream and shake. pt given her pain meds, placed a purewick and placed on list to be evaluated by dr for change in pain meds.
[2022-07-31 06:43] LABS: Bedside Glucose 121 mg/dL (74-106)
[2022-07-31 08:06] LABS: Hematocrit 35.3 % (37-47); Hemoglobin 10.9 g/dL (12.0-15.0)
[2022-07-31] MEDS: Spironolactone 25 MG Tablet PO (08:47)
[2022-07-31 08:59] VITALS: BP 131/67; PULSE 105
[2022-07-31 11:28] LABS: Bedside Glucose 144 mg/dL (74-106)
[2022-07-31 15:48] VITALS: BP 132/62; PULSE 120; RESP 18; TEMP 36.8; O2SAT 87
[2022-07-31 17:05] LABS: Bedside Glucose 145 mg/dL (74-106)
[2022-07-31] MEDS: Rivaroxaban 20 MG Tablet PO (18:04)
[2022-07-31 18:05] VITALS: BP 127/67; PULSE 79
[2022-07-31] MEDS: Nystatin Powder 15gm Bottle 1 APPLIC TOPICAL (18:05)
[2022-07-31 18:06] VITALS: BP 127/67; PULSE 79
[2022-07-31 20:30] VITALS: PULSE 108; RESP 18; O2SAT 92
[2022-07-31] MEDS: Atorvastatin Calcium 10 MG Tablet PO (20:53)
[2022-07-31] MEDS: NYSTATIN 500,000 UNIT/5 ML UDC 500000 UNIT PO (20:53)
[2022-07-31 21:32] LABS: Bedside Glucose 152 mg/dL (74-106)
[2022-08-01 05:52] VITALS: BP 163/64; PULSE 113
[2022-08-01] MEDS: Metoprolol Tartrate 25 MG Tablet PO (05:52)
[2022-08-01] MEDS: dilTIAZem CD 240 MG Capsule PO (05:52)
[2022-08-01] MEDS: Nystatin Powder 15gm Bottle 1 APPLIC TOPICAL ×2 (05:52→17:38)
[2022-08-01] MEDS: Furosemide 20 MG Tablet PO (05:52)
[2022-08-01] MEDS: Cholecalciferol (VIT D3) 25 MCG TABLET (1,000 UNITS) PO (05:53)
[2022-08-01] MEDS: Senna/Docusate Sodium 1 Tablet 2 TABLET PO ×2 (05:53→17:37)
[2022-08-01] MEDS: Acetaminophen 500 MG Tablet 1000 MG PO ×3 (05:53→21:53)
[2022-08-01] MEDS: NYSTATIN 500,000 UNIT/5 ML UDC 500000 UNIT PO ×4 (05:53→21:53)
[2022-08-01 05:56] VITALS: BP 163/64; PULSE 113
[2022-08-01] MEDS: oxyCODONE 5 MG Tablet PO (05:58)
[2022-08-01 06:37] LABS: Bedside Glucose 159 mg/dL (74-106)
[2022-08-01] MEDS: cycloBENZAPRine HCl 5 MG TABLET PO ×3 (06:53→21:53)
[2022-08-01] MEDS: Magnesium Hydroxide 30 ML UDC PO (08:05)
[2022-08-01] MEDS: Spironolactone 25 MG Tablet PO (08:05)
[2022-08-01 09:46] VITALS: PULSE 102; RESP 16; O2SAT 91
[2022-08-01 10:36] LABS: Bedside Glucose 207 mg/dL (74-106)
[2022-08-01 14:01] VITALS: BP 111/74; PULSE 65; RESP 16; TEMP 36.6; O2SAT 91
[2022-08-01 17:37] VITALS: BP 122/61; PULSE 76
[2022-08-01] MEDS: Metoprolol Tartrate 50 MG Tablet PO (17:37)
[2022-08-01] MEDS: Rivaroxaban 20 MG Tablet PO (17:37)
[2022-08-01] MEDS: Atorvastatin Calcium 10 MG Tablet PO (21:53)
[2022-08-01 22:10] LABS: Bedside Glucose 200 mg/dL (74-106)
[2022-08-01] MEDS: traMADol 50 MG Tablet PO (22:40)
[2022-08-02] MEDS: cycloBENZAPRine HCl 5 MG TABLET PO ×3 (05:49→20:37)
[2022-08-02] MEDS: Senna/Docusate Sodium 1 Tablet 2 TABLET PO ×2 (05:49→17:09)
[2022-08-02] MEDS: Furosemide 20 MG Tablet PO (05:49)
[2022-08-02] MEDS: Nystatin Powder 15gm Bottle 1 APPLIC TOPICAL ×2 (05:49→17:11)
[2022-08-02] MEDS: NYSTATIN 500,000 UNIT/5 ML UDC 500000 UNIT PO ×4 (05:49→20:37)
[2022-08-02 05:50] VITALS: BP 126/69; PULSE 102
[2022-08-02] MEDS: Acetaminophen 500 MG Tablet 1000 MG PO ×3 (05:50→20:37)
[2022-08-02] MEDS: Metoprolol Tartrate 50 MG Tablet PO ×2 (05:50→17:09)
[2022-08-02] MEDS: Cholecalciferol (VIT D3) 25 MCG TABLET (1,000 UNITS) PO (05:50)
[2022-08-02] MEDS: dilTIAZem CD 240 MG Capsule PO (05:51)
[2022-08-02 05:54] VITALS: BP 126/69; PULSE 102
[2022-08-02 06:38] LABS: Bedside Glucose 137 mg/dL (74-106)
[2022-08-02] MEDS: Spironolactone 25 MG Tablet PO (08:36)
[2022-08-02] MEDS: oxyCODONE 5 MG Tablet PO ×2 (09:12→20:41)
--- NOTE | 2022-08-02 10:23 | NURSING ---
Offered covid booster, education about vaccine provided. Patient refuses at this time.
[2022-08-02 11:51] LABS: Bedside Glucose 157 mg/dL (74-106)
--- NOTE | 2022-08-02 12:52 | CASEMGMT ---
Social Work BIMS () and PHQ-9 (05/10) completed for MDS assessment. Zoë Joseph MSW HOME ASSESSMENT NURSE
[2022-08-02 14:03] VITALS: BP 118/50; PULSE 89; RESP 18; TEMP 35.6; O2SAT 96
[2022-08-02 16:26] LABS: Bedside Glucose 136 mg/dL (74-106)
[2022-08-02 17:09] VITALS: PULSE 100
[2022-08-02] MEDS: Rivaroxaban 20 MG Tablet PO (17:09)
[2022-08-02] MEDS: Atorvastatin Calcium 10 MG Tablet PO (20:38)
[2022-08-02 20:48] VITALS: O2SAT 94
[2022-08-02 21:30] LABS: Bedside Glucose 157 mg/dL (74-106)
[2022-08-03] MEDS: traMADol 50 MG Tablet PO (04:11)
[2022-08-03] MEDS: Cholecalciferol (VIT D3) 25 MCG TABLET (1,000 UNITS) PO (04:12)
[2022-08-03] MEDS: Senna/Docusate Sodium 1 Tablet 2 TABLET PO ×2 (04:12→17:51)
[2022-08-03] MEDS: Acetaminophen 500 MG Tablet 1000 MG PO ×3 (04:12→20:18)
[2022-08-03 04:13] VITALS: BP 124/79; PULSE 97
[2022-08-03] MEDS: Furosemide 20 MG Tablet PO (04:13)
[2022-08-03] MEDS: Metoprolol Tartrate 50 MG Tablet PO ×2 (04:13→17:52)
[2022-08-03] MEDS: cycloBENZAPRine HCl 5 MG TABLET PO ×3 (04:13→20:18)
[2022-08-03] MEDS: NYSTATIN 500,000 UNIT/5 ML UDC 500000 UNIT PO ×4 (04:13→20:19)
[2022-08-03] MEDS: dilTIAZem CD 240 MG Capsule PO (04:13)
[2022-08-03] MEDS: Nystatin Powder 15gm Bottle 1 APPLIC TOPICAL ×2 (04:15→17:53)
[2022-08-03 06:00] VITALS: BMI 49.2
[2022-08-03 06:20] LABS: Bedside Glucose 135 mg/dL (74-106)
[2022-08-03] MEDS: Spironolactone 25 MG Tablet PO (07:43)
[2022-08-03] MEDS: oxyCODONE 5 MG Tablet PO ×3 (07:43→20:23)
[2022-08-03 11:55] LABS: Bedside Glucose 164 mg/dL (74-106)
[2022-08-03 14:46] VITALS: BP 143/97; PULSE 124; RESP 18; TEMP 36.2; O2SAT 94
[2022-08-03 17:14] LABS: Bedside Glucose 151 mg/dL (74-106)
[2022-08-03 17:52] VITALS: PULSE 65
[2022-08-03] MEDS: Rivaroxaban 15 MG Tablet PO (17:52)
[2022-08-03] MEDS: Atorvastatin Calcium 10 MG Tablet PO (20:19)
[2022-08-04] MEDS: Senna/Docusate Sodium 1 Tablet 2 TABLET PO ×2 (05:23→17:23)
[2022-08-04 05:24] VITALS: PULSE 95
[2022-08-04] MEDS: Metoprolol Tartrate 50 MG Tablet PO ×2 (05:24→17:26)
[2022-08-04] MEDS: Furosemide 20 MG Tablet PO (05:24)
[2022-08-04] MEDS: cycloBENZAPRine HCl 5 MG TABLET PO ×3 (05:24→20:21)
[2022-08-04] MEDS: Acetaminophen 500 MG Tablet 1000 MG PO ×3 (05:24→20:20)
[2022-08-04] MEDS: dilTIAZem CD 240 MG Capsule PO (05:24)
[2022-08-04] MEDS: Cholecalciferol (VIT D3) 25 MCG TABLET (1,000 UNITS) PO (05:24)
[2022-08-04] MEDS: NYSTATIN 500,000 UNIT/5 ML UDC 500000 UNIT PO ×4 (05:24→20:22)
[2022-08-04] MEDS: oxyCODONE 5 MG Tablet PO ×3 (05:25→20:20)
[2022-08-04] MEDS: Nystatin Powder 15gm Bottle 1 APPLIC TOPICAL ×2 (05:26→17:23)
[2022-08-04 06:28] LABS: Bedside Glucose 164 mg/dL (74-106)
[2022-08-04] MEDS: Spironolactone 25 MG Tablet PO (08:26)
--- NOTE | 2022-08-04 09:06 | CASEMGMT ---
Social Work IDT met with patient and dtr via conference call for care plan meeting. Discussed patient's progress in PT/OT/SN. Educated to [facility] insurance with NRD 08/09 and continued stay is not guaranteed with each review. Pt lives at home with dtr and grandchildren, however, currently pt is total x2 assist. Broached topic of having alternative DC plan. Discussed ELECT EQUIP MAINT ENG at home if one person assist while dtr is at work or SNF placement, private pay vs Medicaid eligible. SW offered ongoing assistance with DC planning. Dtr to discuss with pt and notify this worker about plan. SW to continue to follow for DC planning. Zoë Joseph, RENEWABLE ENERGY ENGINEER SWITCHBOARD OPERATOR ASSISTANT
[2022-08-04 15:27] VITALS: BP 105/60; PULSE 95; RESP 18; TEMP 36.2; O2SAT 94
[2022-08-04] MEDS: Rivaroxaban 15 MG Tablet PO (17:23)
[2022-08-04 17:26] VITALS: BP 126/73; PULSE 74
[2022-08-04 17:27] VITALS: BP 126/73; PULSE 74
[2022-08-04] MEDS: Atorvastatin Calcium 10 MG Tablet PO (20:23)
[2022-08-04 20:27] VITALS: O2SAT 92
[2022-08-05] MEDS: oxyCODONE 5 MG Tablet PO ×4 (01:15→20:22)
[2022-08-05 05:37] LABS: Absolute Lymphocyte Count 0.69 X10^3/uL (0.83-4.51); Absolute Neutrophil Count 13.1 X10^3/uL (2.0-7.7); Basophil# 0.05 X10^3/uL; Basophil% 0.3 % (0-1); Eosinophil# 0.04 X10^3/uL; Eosinophils% 0.2 % (0-5); Hematocrit 31.1 % (37-47); Hemoglobin 9.8 g/dL (12.0-15.0); Lymphocyte # 0.69 X10^3/ul (0.83-4.51); Lymphocyte % 4.2 % (19-41); Mean Corp Hgb Conc 31.5 g/dL (32-36); Mean Corpuscular Hgb 28.5 pg (27.0-32.0); Mean Corpuscular Volume 90.4 fL (81-99); Mean Platelet Vol. 9.7 fl (6.2-12.0); Monocyte# 2.22 X10^3/uL; Monocyte% 13.5 % (0-10); NRBC Flagged by Analyzer 0 % (0-5); Neutrophil # 13.09 X10^3/uL (2.7-7.7); Neutrophil % 79.9 % (47-70); POSITIVE DIFFERENTIAL YES; Platelet Count 153 K/mm3 (150-450); RBC Distribution Width CV 14.6 % (11.6-14.6); RBC Distribution Width SD 48.3 fl (35.1-43.9); Red Blood Count 3.44 M/mm3 (4.2-5.4); White Blood Count 16.4 K/mm3 (4.4-11.0)
[2022-08-05 05:38] LABS: Differential Indicated SCAN CRITERIA MET
[2022-08-05] MEDS: Senna/Docusate Sodium 1 Tablet 2 TABLET PO ×2 (05:52→17:22)
[2022-08-05 05:53] VITALS: BP 143/58; PULSE 83
[2022-08-05] MEDS: dilTIAZem CD 240 MG Capsule PO (05:53)
[2022-08-05] MEDS: Metoprolol Tartrate 50 MG Tablet PO ×2 (05:53→17:21)
[2022-08-05] MEDS: Acetaminophen 500 MG Tablet 1000 MG PO ×3 (05:53→20:23)
[2022-08-05] MEDS: Furosemide 20 MG Tablet PO (05:53)
[2022-08-05] MEDS: cycloBENZAPRine HCl 5 MG TABLET PO ×3 (05:53→20:22)
[2022-08-05] MEDS: NYSTATIN 500,000 UNIT/5 ML UDC 500000 UNIT PO ×4 (05:54→20:21)
[2022-08-05 05:58] LABS: Anion Gap 6 (5-15); BUN 33 mg/dL (7-18); Calcium,Total 8.6 mg/dL (8.5-10.1); Chloride 99 mmol/L (98-107); Creatinine, Serum 1.22 mg/dL (0.55-1.02); EST Glomerular Filtration Rate 45 mL/min (>60); Est Glom Filt Rate - Afr Amer 55 mL/min (>60); Estimated Creatinine Clearance 27.74 ml/min; Glucose 157 mg/dL (74-106); Potassium 4.3 mmol/L (3.5-5.1); Sodium Level 133 mmol/L (136-145)
[2022-08-05] MEDS: Nystatin Powder 15gm Bottle 1 APPLIC TOPICAL ×2 (06:00→17:22)
[2022-08-05] MEDS: Cholecalciferol (VIT D3) 25 MCG TABLET (1,000 UNITS) PO (06:01)
[2022-08-05 06:07] LABS: Differential Comment SCANNED
[2022-08-05 06:23] LABS: Bedside Glucose 184 mg/dL (74-106)
[2022-08-05] MEDS: Spironolactone 25 MG Tablet PO (08:27)
--- NOTE | 2022-08-05 10:00 | RAD_ITS ---
EXAM: XR CHEST, 2 VIEWS CLINICAL INDICATION: Elevated WBC TECHNIQUE: Frontal and lateral views of the chest. COMPARISON: No relevant prior studies available. FINDINGS: LUNGS AND PLEURAL SPACES: Unremarkable. No consolidation or edema. No pneumothorax. No effusion. HEART: Unremarkable. Cardiac silhouette not enlarged. MEDIASTINUM: Central airways and mediastinal contour are unremarkable. BONES/JOINTS: Unremarkable. SOFT TISSUES: Unremarkable. RAD/Chest PA and Lateral IMPRESSION: No radiographic evidence of acute cardiopulmonary disease. Electronically Signed: Miguel Rasheed MD at 20:12 EDT ,
[2022-08-05 10:52] LABS: Mucous, Urine 0 SEEN /hpf (<or=2+); Red Blood Cells-Urine 0 SEEN /hpf (0-5); Squamous Epithelial Cells - UA 0 SEEN /hpf (5-10)
[2022-08-05] MEDS: Tuberculin,Purif.prot.deriv. 50 TU/ML Vial 0.1 ML ID (11:27)
[2022-08-05 13:22] LABS: Pathologist Review Reviewed
[2022-08-05 14:14] VITALS: BP 121/66; PULSE 96; RESP 16; TEMP 36.4; O2SAT 92
[2022-08-05 14:18] LABS: Color, Urine Yellow (Yellow); Glucose, Dipstick Normal (Normal); Ketone-Dipstick Negative (Negative); Leukocyte Esterase-Dipstick 500 /ul (Negative); Nitrite-Dipstick Positive (Negative); Occult Blood-Urine 250 /ul (Negative); Protein-Dipstick 30 mg/dl (Negative); Urine Bilirubin Dipstick Negative (Negative); Urine Clarity Sl. Cloudy (Clear); Urine Urobilinogen Normal (Normal)
[2022-08-05 14:30] LABS: Bacteria RARE /hpf (None Seen); White Blood Cells 5-10 SEEN /hpf (0-5)
[2022-08-05 17:21] VITALS: PULSE 96
[2022-08-05] MEDS: Rivaroxaban 15 MG Tablet PO (17:22)
[2022-08-05] MEDS: Atorvastatin Calcium 10 MG Tablet PO (20:22)
[2022-08-05 20:36] VITALS: PULSE 95; RESP 20; O2SAT 94
[2022-08-05] MEDS: traMADol 50 MG Tablet PO (23:30)
[2022-08-06 05:39] VITALS: BP 113/78; PULSE 99
[2022-08-06] MEDS: Furosemide 20 MG Tablet PO (05:39)
[2022-08-06] MEDS: cycloBENZAPRine HCl 5 MG TABLET PO ×3 (05:39→21:07)
[2022-08-06] MEDS: Metoprolol Tartrate 50 MG Tablet PO ×2 (05:39→17:13)
[2022-08-06] MEDS: dilTIAZem CD 240 MG Capsule PO (05:39)
[2022-08-06] MEDS: Nystatin Powder 15gm Bottle 1 APPLIC TOPICAL ×2 (05:40→17:13)
[2022-08-06] MEDS: Senna/Docusate Sodium 1 Tablet 2 TABLET PO ×2 (05:40→17:13)
[2022-08-06] MEDS: NYSTATIN 500,000 UNIT/5 ML UDC 500000 UNIT PO ×4 (05:40→21:07)
[2022-08-06] MEDS: Cholecalciferol (VIT D3) 25 MCG TABLET (1,000 UNITS) PO (05:41)
[2022-08-06] MEDS: Acetaminophen 500 MG Tablet 1000 MG PO ×3 (05:41→21:07)
[2022-08-06 06:19] LABS: Bedside Glucose 123 mg/dL (74-106)
[2022-08-06] MEDS: Spironolactone 25 MG Tablet PO (08:35)
[2022-08-06] MEDS: Ciprofloxacin 500 MG Tablet PO ×2 (08:35→17:12)
[2022-08-06 10:00] VITALS: PULSE 82; O2SAT 91
[2022-08-06] MEDS: MENTHOL 226.8 GM JAR 1 APPLIC TOPICAL (10:21)
[2022-08-06] MEDS: oxyCODONE 5 MG Tablet PO (10:21)
--- NOTE | 2022-08-06 11:17 | CASEMGMT ---
Social Work Received phone call from dtr stating if pt cannot return home, pt will need to DC to a SNF. SW offered to provide SNF list for review. Dtr will visit this evening and requesting printed list. SW educated to Medicare.gov and touring facilities. Dtr stated pt can pay privately at SNFs for about 6 months but the intent is to return home. SW left printed SNF list with quality and resource data via [employer] [facility] in pt's room for dtr review. Will continue to follow. TRACEE MccloudW
[2022-08-06 14:44] VITALS: BP 101/55; PULSE 62; RESP 18; TEMP 36.9; O2SAT 96
[2022-08-06] MEDS: Rivaroxaban 15 MG Tablet PO (17:12)
[2022-08-06 17:13] VITALS: BP 119/45; PULSE 63
[2022-08-06] MEDS: Atorvastatin Calcium 10 MG Tablet PO (21:07)
[2022-08-06] MEDS: traMADol 50 MG Tablet PO (21:09)
[2022-08-07] MEDS: oxyCODONE 5 MG Tablet PO ×2 (01:45→21:11)
[2022-08-07] MEDS: cycloBENZAPRine HCl 5 MG TABLET PO ×3 (05:36→21:13)
[2022-08-07] MEDS: traMADol 50 MG Tablet PO (05:36)
[2022-08-07] MEDS: dilTIAZem CD 240 MG Capsule PO (05:36)
[2022-08-07] MEDS: Senna/Docusate Sodium 1 Tablet 2 TABLET PO ×2 (05:36→17:15)
[2022-08-07] MEDS: Cholecalciferol (VIT D3) 25 MCG TABLET (1,000 UNITS) PO (05:36)
[2022-08-07] MEDS: Furosemide 20 MG Tablet PO (05:36)
[2022-08-07] MEDS: Acetaminophen 500 MG Tablet 1000 MG PO ×3 (05:36→21:12)
[2022-08-07] MEDS: Ciprofloxacin 500 MG Tablet PO ×2 (05:36→17:15)
[2022-08-07 05:37] VITALS: BP 126/82; PULSE 70
[2022-08-07] MEDS: Nystatin Powder 15gm Bottle 1 APPLIC TOPICAL ×2 (05:37→17:16)
[2022-08-07] MEDS: NYSTATIN 500,000 UNIT/5 ML UDC 500000 UNIT PO ×4 (05:37→21:12)
[2022-08-07] MEDS: Metoprolol Tartrate 50 MG Tablet PO ×2 (05:37→17:16)
[2022-08-07 05:49] VITALS: BP 122/76; PULSE 70
[2022-08-07 06:38] LABS: Bedside Glucose 134 mg/dL (74-106)
--- NOTE | 2022-08-07 06:38 | NURSING ---
This nurse offered PRN milk of magnesia to pt as last documented bowel movement was 08/03/22, pt declined at this time stating she had a bowel movement on 08/06/22.
[2022-08-07] MEDS: Spironolactone 25 MG Tablet PO (07:53)
[2022-08-07 16:00] VITALS: BP 120/54; PULSE 90; RESP 16; TEMP 36; O2SAT 94
[2022-08-07] MEDS: Rivaroxaban 15 MG Tablet PO (17:14)
[2022-08-07 17:16] VITALS: PULSE 90
[2022-08-07] MEDS: Atorvastatin Calcium 10 MG Tablet PO (21:12)
[2022-08-08] MEDS: oxyCODONE 5 MG Tablet PO ×2 (04:12→18:08)
[2022-08-08 04:13] VITALS: BP 143/83; PULSE 105
[2022-08-08] MEDS: Metoprolol Tartrate 50 MG Tablet PO ×2 (04:13→18:05)
[2022-08-08] MEDS: Senna/Docusate Sodium 1 Tablet 2 TABLET PO ×2 (04:13→18:05)
[2022-08-08] MEDS: Furosemide 20 MG Tablet PO (04:13)
[2022-08-08] MEDS: Cholecalciferol (VIT D3) 25 MCG TABLET (1,000 UNITS) PO (04:13)
[2022-08-08] MEDS: cycloBENZAPRine HCl 5 MG TABLET PO ×3 (04:14→21:38)
[2022-08-08] MEDS: Ciprofloxacin 500 MG Tablet PO ×2 (04:14→18:05)
[2022-08-08] MEDS: Acetaminophen 500 MG Tablet 1000 MG PO ×3 (04:14→21:38)
[2022-08-08] MEDS: NYSTATIN 500,000 UNIT/5 ML UDC 500000 UNIT PO ×4 (04:14→21:41)
[2022-08-08] MEDS: dilTIAZem CD 240 MG Capsule PO (04:14)
[2022-08-08] MEDS: Nystatin Powder 15gm Bottle 1 APPLIC TOPICAL ×3 (04:17→21:40)
[2022-08-08 06:29] LABS: Bedside Glucose 144 mg/dL (74-106)
[2022-08-08] MEDS: Spironolactone 25 MG Tablet PO (08:14)
[2022-08-08 15:17] VITALS: BP 126/80; PULSE 104; RESP 16; TEMP 36.6; O2SAT 97
[2022-08-08 18:05] VITALS: PULSE 104
[2022-08-08] MEDS: Rivaroxaban 15 MG Tablet PO (18:05)
[2022-08-08] MEDS: traMADol 50 MG Tablet PO (19:36)
[2022-08-08] MEDS: Atorvastatin Calcium 10 MG Tablet PO (21:38)
[2022-08-08 21:43] VITALS: BP 122/88; PULSE 113; RESP 16; TEMP 36.6; O2SAT 97
[2022-08-09] MEDS: oxyCODONE 5 MG Tablet PO ×2 (04:02→20:43)
[2022-08-09] MEDS: traMADol 50 MG Tablet PO (05:00)
[2022-08-09] MEDS: diazePAM 5 MG Tablet 10 MG PO (05:00)
[2022-08-09] MEDS: Senna/Docusate Sodium 1 Tablet 2 TABLET PO ×2 (05:01→17:11)
[2022-08-09 05:03] VITALS: BP 125/93; PULSE 114
[2022-08-09] MEDS: Furosemide 20 MG Tablet PO (05:03)
[2022-08-09] MEDS: Ciprofloxacin 500 MG Tablet PO ×2 (05:03→17:10)
[2022-08-09] MEDS: Metoprolol Tartrate 50 MG Tablet PO ×2 (05:03→17:11)
[2022-08-09] MEDS: dilTIAZem CD 240 MG Capsule PO (05:03)
[2022-08-09] MEDS: cycloBENZAPRine HCl 5 MG TABLET PO ×3 (05:04→20:37)
[2022-08-09] MEDS: NYSTATIN 500,000 UNIT/5 ML UDC 500000 UNIT PO ×4 (05:04→20:37)
[2022-08-09] MEDS: Nystatin Powder 15gm Bottle 1 APPLIC TOPICAL ×2 (05:04→17:11)
[2022-08-09] MEDS: Acetaminophen 500 MG Tablet 1000 MG PO ×3 (05:05→20:37)
[2022-08-09] MEDS: Cholecalciferol (VIT D3) 25 MCG TABLET (1,000 UNITS) PO (05:05)
[2022-08-09 06:16] LABS: Bedside Glucose 135 mg/dL (74-106)
[2022-08-09] MEDS: Spironolactone 25 MG Tablet PO (10:46)
[2022-08-09 13:54] VITALS: BP 125/62; PULSE 86; RESP 16; TEMP 36.3; O2SAT 95
--- NOTE | 2022-08-09 17:09 | CASEMGMT ---
Addendum entered by Zoë Joseph 08/10/22 13:54: DC paperwork and PAS sent to [facility]. Phoned dtr to update. Dtr appreciative. Addendum entered by Zoë Joseph 08/10/22 13:38: [facility] and [facility] have accepted. [facility] is OON. SW spoke with pt on preference. Pt reports her and dtr prefer [facility]. SW updated SNFs. PASRR completed. W/C transport scheduled for 1100. Original Note: Social Work Insurance issued LCD 08/12, DC 08/13. Pt and dtr present in room. Updated to DC date and appeal rights. Pt agreeable to SNF as pt does not feel ready to DC home alone yet. Dtr requested referrals to [facility], [facility] and [facility]. Pt would admit nonskilled ,private pay, with part B therapies. [facility]. Plan: DC 08/13 to SNF, nonskilled, private pay, part B therapies. TRACEE Mccloud
[2022-08-09] MEDS: Rivaroxaban 15 MG Tablet PO (17:10)
[2022-08-09 17:11] VITALS: PULSE 86
--- NOTE | 2022-08-09 19:20 | DS.PCM_ITS ---
Providers Date of Admission: 07/28/22 Primary Care Physician: LILLIAM Ulloa Reason For Visit: BACK PAIN W RIGHT SIDED SCIATICA Diagnosis Discharge Diagnosis (1) Debility: Status: Acute Code(s): R53.81 - Other malaise (2) Adult failure to thrive: Status: Acute Code(s): R62.7 - Adult failure to thrive (3) Intractable low back pain: Status: Acute Code(s): M54.59 - Other low back pain (4) Sciatica: Status: Acute Code(s): M54.30 - Sciatica, unspecified side (5) Atrial fibrillation: Status: Acute Code(s): I48.91 - Unspecified atrial fibrillation (6) Hypertension: Status: Chronic Code(s): I10 - Essential (primary) hypertension (7) Hyperlipidemia: Status: Acute Code(s): E78.5 - Hyperlipidemia, unspecified (8) Diabetes mellitus: Status: Acute Code(s): E11.9 - Type 2 diabetes mellitus without complications (9) Iron deficiency anemia: Status: Acute Code(s): D50.9 - Iron deficiency anemia, unspecified (10) Ventral hernia: Status: Acute Code(s): K43.9 - Ventral hernia without obstruction or gangrene Plan 76 year old female with below past medical history hospitalized for intractable low back pain, sciatica, admitted to TCU with debility, here for rehabilitation, strengthening, prior to discharge home with daughter Hazel. * Debility - PT/OT. * Pain - Tylenol 1000mg q8, Tramadol 50mg q6h prn pain (1-5), Oxycodone 5mg q4h prn pain (6-10). * Bowel - senna/colace 2 tablets bid, Dulcolax 10mg pr x 1 prn, MOM 30ml po x 1 prn. * Adult immunization - Administer pneumonia vaccine, covid19 vaccine, flu vaccine as appropriate. * DVT prophylaxis - on Xarelto. * Hyperlipidemia - Atorvastatin 10mg qhs. * Muscle spasm - Flexeril 5mg qhs. * Atrial fibrillation - Metoprolol 25mg bid, Diltiazem CD 240mg daily, Xarelto 20mg daily. * Chronic diastolic heart failure - Metoprolol 25mg bid, Aldactone 25mg daily, Furosemide 20mg daily. * Low back pain - Prednisone 40mg x 1 dose. * Vitamin D deficiency - D3 25mcg daily. Medications at Discharge Home Medications atorvastatin 10 mg tablet 10 mg PO QHS Cholesterol 07/11/22 diltiazem HCl 240 mg capsule,24 hr,extended release 240 mg PO DAILY BP 07/11/22 furosemide 20 mg tablet (Lasix) 20 mg PO DAILY Heart 07/11/22 spironolactone 25 mg tablet 25 mg PO DAILY Heart 07/11/22 acetaminophen 500 mg tablet 1,000 mg PO Q8 #0 tabs 08/09/22 cholecalciferol (vitamin D3) 25 mcg (1,000 unit) tablet 25 mcg PO DAILY #0 tabs 08/09/22 cyclobenzaprine 5 mg tablet 5 mg PO TID #0 tabs 08/09/22 metoprolol tartrate 50 mg tablet 50 mg PO BID #0 tabs 08/09/22 oxycodone 5 mg tablet 5 mg PO Q4H PRN PRN Pain Score 6-10 3 days #18 tabs 08/09/22 rivaroxaban 15 mg tablet (Xarelto) 15 mg PO DAILY@DINNER #0 tabs 08/09/22 sennosides 8.6 mg-docusate sodium 50 mg tablet (Stool Softener-Stimulant Laxative) 2 tab PO BID #0 tabs 08/09/22 tramadol 50 mg tablet 50 mg PO Q6H PRN PRN Pain Score 1-5 3 days #12 tabs 08/09/22 Hospital Course Operations None Procedures None Summary of Care Provided Minutes Spent on Discharge: 35 Hospital Course: 76 year old female with below past medical history hospitalized for intractable low back pain, sciatica, admitted to TCU with debility, here for rehabilitation, strengthening, prior to discharge home with daughter Hazel. Resident declined MRI LS spine in hospital. On TCU, resident agreed to MRI LS spine, but insurance would not approve until she had failed [address] Shine consulted. 08/05/2022 E. Coli UTI treated with Cipro 500mg twice daily x 7 days. Discharge to SNF 08/13/2022, non-skilled, private pay, part B therapies. Physical Exam Const alert General Appearance: cooperative HEENT normocephalic Eyes PERRL and EOMs intact bilaterally Neck supple, no JVD and no carotid bruits Resp normal respiratory effort, normal air movement and clear to auscultation bilaterally Cardio regular rate and regular rhythm GI normal to inspection, nondistended, normoactive bowel sounds, non-tender and non-distended Extremity normal capillary refill General Extremity: Negative for edema Skin no rashes or lesions noted General Skin Exam: no breakdown Psych affect normal Appearance: appropriate Weight / BMI Weight Weight: 114.419 kg Body Mass Index (BMI) 49.2 ABG / Lab / Microbiology Data Result Diagrams: 08/05/22 05:13 08/05/22 05:13 Laboratory: Laboratory Results - last 24 hr 08/09/22 05:59: POC Glucose 135 H Microbiology: Microbiology 08/05/22 Unknown Urine, Catheterized Urine Culture - Final Escherichia coli 07/30/22 07:40 Nasal Secretion SARS-CoV-2 Antigen (Rapid) - Final D/C Instructions Discharge Diet: No restrictions Discharge Activity: Return to Normal Activity, May Shower and Use Walker Weight Bearing Status: Weight bearing as tolerated Call your doctor if you observe: Fever of 101 or Higher, Inability to urinate, Inability to have a bowel movement, Shortness of breath, Dizziness, Fainting spells, Swelling in the ankles, Chest pain and Uncontrolled pain Additional Instructions: Discharge to SNF 08/13/2022, non-skilled, private pay, part B therapies. Meaningful Use Info Meaningful Use Diagnoses (Choose all that apply): None applicable Discharge Plan Admission Admit Date/Time: 07/28/22 16:36 Primary Reason for Your Visit: Debility. Attending Provider: Kristopher Celaya Chi Primary Care Provider: Delia Ibanez NP Instructions Additional Instructions / Restrictions: Discharge to SNF 08/13/2022, non-skilled, private pay, part B therapies. Discharge Orders/Prescriptions Prescriptions: New sennosides-docusate sodium [Stool Softener-Stimulant Laxat] 8.6-50 mg Tablet 2 tab PO BID Qty: 0 0RF tramadol 50 mg Tablet 50 mg PO Q6H PRN PRN (Reason: Pain Score 1-5) 3 Days Qty: 12 0RF acetaminophen 500 mg Tablet 1,000 mg PO Q8 Qty: 0 0RF metoprolol tartrate 50 mg Tablet 50 mg PO BID Qty: 0 0RF oxycodone 5 mg Tablet 5 mg PO Q4H PRN PRN (Reason: Pain Score 6-10) 3 Days Qty: 18 0RF cyclobenzaprine 5 mg Tablet 5 mg PO TID Qty: 0 0RF cholecalciferol (vitamin D3) 25 mcg (1,000 unit) Tablet 25 mcg PO DAILY Qty: 0 0RF Xarelto 15 mg Tablet 15 mg PO DAILY@DINNER Qty: 0 0RF Continued atorvastatin 10 mg Tablet 10 mg PO QHS diltiazem HCl 240 mg Capsule,Extended Release 24 Hr 240 mg PO DAILY spironolactone 25 mg Tablet 25 mg PO DAILY furosemide [Lasix] 20 mg Tablet 20 mg PO DAILY Discontinued iron 18 mg Tablet 18 mg PO DAILY cholecalciferol (vitamin D3) [Vitamin D3] 10 mcg (400 unit) Capsule 10 mcg PO DAILY cyclobenzaprine 5 mg Tablet 5 mg PO QHS metoprolol tartrate 25 mg Tablet 25 mg PO BID Xarelto 20 mg Tablet 20 mg PO DAILY Rx Instructions: must administer with evening meal hydrocodone-acetaminophen 5-325 mg tablet 1 tab PO Q6H PRN (Reason: pain) 3 Days Qty: 12 0RF prednisone 20 mg tablet 40 mg PO BREAKFAST insulin lispro [Humalog KwikPen Insulin] 100 unit/mL insulin pen See Protocol subcut [facility] Protocol: 3. Sliding Scale Insulin Med Dosing Condition: 150-189 mg/dl = 1 unit Condition: 190-229 mg/dl = 2 units Condition: 230-269 mg/dl = 3 units Condition: 270-309 mg/dl = 4 units Condition: 310-349 mg/dl = 5 units Condition: 350-399 mg/dl = 6 units Condition: 400-449 mg/dl = 7 units Condition: Greater than 449 call physician Protocol Text: - Use for Total Daily Dose of Insulin 37-55 units - Obsese, infected, or steroid patients MEDIUM DOSING ALGORITHIM Referrals / Follow Up: Delia Ibanez CAD DETAILER, CAD DETAILER-C [Primary Care Provider] - Disposition Disposition (needs filled in before D/C Order can be placed): NonSkilled NH/Inte rmed Care
--- NOTE | 2022-08-09 19:28 | TREXTCAR_ITS ---
Diet Diet Order/Speech Therapy: 07/28/22 17:15 Diet: Cardiac - Heart Healthy Food consistency:: Regular Liquid Consistency:: Regular/Thin Is pt able to select menu?: Yes Routine Orders/Code Status Code Status: Full Code Wound(s) Split under right abdominal fold: Wound Type: Excoriation Split under left abdominal fold: Wound Type: Excoriation Therapies Weight Bearing: Weight bearing as tolerated Extremity Affected:: Bilateral Lower Physical Therapy: Eval and Treat Occupational Therapy: Eval and Treat Problem/Diagnosis (1) Debility: Status: Acute Code(s): R53.81 - Other malaise (2) Adult failure to thrive: Status: Acute Code(s): R62.7 - Adult failure to thrive (3) Intractable low back pain: Status: Acute Code(s): M54.59 - Other low back pain (4) Sciatica: Status: Acute Code(s): M54.30 - Sciatica, unspecified side (5) Atrial fibrillation: Status: Acute Code(s): I48.91 - Unspecified atrial fibrillation (6) Hypertension: Status: Chronic Code(s): I10 - Essential (primary) hypertension (7) Hyperlipidemia: Status: Acute Code(s): E78.5 - Hyperlipidemia, unspecified (8) Diabetes mellitus: Status: Acute Code(s): E11.9 - Type 2 diabetes mellitus without complications (9) Iron deficiency anemia: Status: Acute Code(s): D50.9 - Iron deficiency anemia, unspecified (10) Ventral hernia: Status: Acute Code(s): K43.9 - Ventral hernia without obstruction or gangrene Plan 76 year old female with below past medical history hospitalized for intractable low back pain, sciatica, admitted to TCU with debility, here for rehabilitation, strengthening, prior to discharge home with daughter Hazel. * Debility - PT/OT. * Pain - Tylenol 1000mg q8, Tramadol 50mg q6h prn pain (1-5), Oxycodone 5mg q4h prn pain (6-10). * Bowel - senna/colace 2 tablets bid, Dulcolax 10mg pr x 1 prn, MOM 30ml po x 1 prn. * Adult immunization - Administer pneumonia vaccine, covid19 vaccine, flu vaccine as appropriate. * DVT prophylaxis - on Xarelto. * Hyperlipidemia - Atorvastatin 10mg qhs. * Muscle spasm - Flexeril 5mg qhs. * Atrial fibrillation - Metoprolol 25mg bid, Diltiazem CD 240mg daily, Xarelto 20mg daily. * Chronic diastolic heart failure - Metoprolol 25mg bid, Aldactone 25mg daily, Furosemide 20mg daily. * Low back pain - Prednisone 40mg x 1 dose. * Vitamin D deficiency - D3 25mcg daily. Allergies/Procedures Done in Hospital Allergies No Known Allergies Allergy (Verified 07/24/22 12:01) Procedures: None Type of Care/Length of Stay Estimated LOS: More Than 30 Days Type of Care Needed: Intermediate Rehab Potential: Good Prognosis: Good Additional Orders/Day of Discharge Additional Orders: part B therapies Day of Discharge: 08/13/22 Dietary and Speech Recommendations Dietitian Recommendations/Changes: continue cardiac diet as tolerated; add 1600 calorie controlled/consistent CHO diet if hyperglycemia occurs Discharge Plan Admission Admit Date/Time: 07/28/22 16:36 Primary Reason for Your Visit: Debility. Attending Provider: Kristopher Celaya Chi Primary Care Provider: Delia Ibanez LIFE SCIENCE TECHNICAL OFFICER Instructions Additional Instructions / Restrictions: Discharge to SNF 08/13/2022, non-skilled, private pay, part B therapies. Discharge Orders/Prescriptions Prescriptions: New sennosides-docusate sodium [Stool Softener-Stimulant Laxat] 8.6-50 mg Tablet 2 tab PO BID Qty: 0 0RF tramadol 50 mg Tablet 50 mg PO Q6H PRN PRN (Reason: Pain Score 1-5) 3 Days Qty: 12 0RF acetaminophen 500 mg Tablet 1,000 mg PO Q8 Qty: 0 0RF metoprolol tartrate 50 mg Tablet 50 mg PO BID Qty: 0 0RF oxycodone 5 mg Tablet 5 mg PO Q4H PRN PRN (Reason: Pain Score 6-10) 3 Days Qty: 18 0RF cyclobenzaprine 5 mg Tablet 5 mg PO TID Qty: 0 0RF cholecalciferol (vitamin D3) 25 mcg (1,000 unit) Tablet 25 mcg PO DAILY Qty: 0 0RF Xarelto 15 mg Tablet 15 mg PO DAILY@DINNER Qty: 0 0RF Continued atorvastatin 10 mg Tablet 10 mg PO QHS diltiazem HCl 240 mg Capsule,Extended Release 24 Hr 240 mg PO DAILY spironolactone 25 mg Tablet 25 mg PO DAILY furosemide [Lasix] 20 mg Tablet 20 mg PO DAILY Discontinued iron 18 mg Tablet 18 mg PO DAILY cholecalciferol (vitamin D3) [Vitamin D3] 10 mcg (400 unit) Capsule 10 mcg PO DAILY cyclobenzaprine 5 mg Tablet 5 mg PO QHS metoprolol tartrate 25 mg Tablet 25 mg PO BID Xarelto 20 mg Tablet 20 mg PO DAILY Rx Instructions: must administer with evening meal hydrocodone-acetaminophen 5-325 mg tablet 1 tab PO Q6H PRN (Reason: pain) 3 Days Qty: 12 0RF prednisone 20 mg tablet 40 mg PO BREAKFAST insulin lispro [Humalog KwikPen Insulin] 100 unit/mL insulin pen See Protocol subcut [facility] Protocol: 3. Sliding Scale Insulin Med Dosing Condition: 150-189 mg/dl = 1 unit Condition: 190-229 mg/dl = 2 units Condition: 230-269 mg/dl = 3 units Condition: 270-309 mg/dl = 4 units Condition: 310-349 mg/dl = 5 units Condition: 350-399 mg/dl = 6 units Condition: 400-449 mg/dl = 7 units Condition: Greater than 449 call physician Protocol Text: - Use for Total Daily Dose of Insulin 37-55 units - Obsese, infected, or steroid patients MEDIUM DOSING ALGORITHIM Referrals / Follow Up: Delia Ibanez NP, LIFE SCIENCE TECHNICAL OFFICER-C [Primary Care Provider] - Disposition Disposition (needs filled in before D/C Order can be placed): NonSkilled NH/Intermed Care
[2022-08-09] MEDS: Atorvastatin Calcium 10 MG Tablet PO (20:38)
[2022-08-09] MEDS: MethylPREDNISolone DosePak 4 MG BOX PO (20:43)
[2022-08-10] MEDS: Senna/Docusate Sodium 1 Tablet 2 TABLET PO ×2 (05:23→17:19)
[2022-08-10] MEDS: Cholecalciferol (VIT D3) 25 MCG TABLET (1,000 UNITS) PO (05:23)
[2022-08-10] MEDS: dilTIAZem CD 240 MG Capsule PO (05:24)
[2022-08-10] MEDS: Ciprofloxacin 500 MG Tablet PO ×2 (05:24→17:19)
[2022-08-10] MEDS: cycloBENZAPRine HCl 5 MG TABLET PO ×3 (05:24→20:19)
[2022-08-10] MEDS: Acetaminophen 500 MG Tablet 1000 MG PO ×3 (05:24→20:19)
[2022-08-10] MEDS: Furosemide 20 MG Tablet PO (05:24)
[2022-08-10 05:25] VITALS: BP 132/61; PULSE 84
[2022-08-10] MEDS: Metoprolol Tartrate 50 MG Tablet PO ×2 (05:25→17:19)
[2022-08-10] MEDS: NYSTATIN 500,000 UNIT/5 ML UDC 500000 UNIT PO ×4 (05:25→20:20)
[2022-08-10] MEDS: Nystatin Powder 15gm Bottle 1 APPLIC TOPICAL ×2 (05:27→17:18)
[2022-08-10 06:00] VITALS: BMI 49.5
[2022-08-10 06:20] LABS: Bedside Glucose 200 mg/dL (74-106)
[2022-08-10] MEDS: oxyCODONE 5 MG Tablet PO ×2 (06:53→20:18)
[2022-08-10] MEDS: MethylPREDNISolone DosePak 4 MG BOX PO ×4 (08:24→20:20)
[2022-08-10] MEDS: Spironolactone 25 MG Tablet PO (08:51)
[2022-08-10] MEDS: traMADol 50 MG Tablet PO (11:13)
[2022-08-10 14:28] VITALS: BP 137/83; PULSE 84; RESP 18; TEMP 36.2; O2SAT 97
[2022-08-10] MEDS: Rivaroxaban 15 MG Tablet PO (17:17)
[2022-08-10 17:19] VITALS: BP 137/83; PULSE 84
[2022-08-10] MEDS: Atorvastatin Calcium 10 MG Tablet PO (20:19)
[2022-08-10 20:26] VITALS: O2SAT 94
[2022-08-11] MEDS: oxyCODONE 5 MG Tablet PO (05:31)
[2022-08-11 06:00] VITALS: BP 136/69; PULSE 74
[2022-08-11] MEDS: Senna/Docusate Sodium 1 Tablet 2 TABLET PO ×2 (06:00→17:23)
[2022-08-11] MEDS: cycloBENZAPRine HCl 5 MG TABLET PO ×3 (06:00→21:21)
[2022-08-11] MEDS: Metoprolol Tartrate 50 MG Tablet PO ×2 (06:00→17:23)
[2022-08-11] MEDS: dilTIAZem CD 240 MG Capsule PO (06:00)
[2022-08-11] MEDS: Ciprofloxacin 500 MG Tablet PO ×2 (06:00→17:23)
[2022-08-11] MEDS: Acetaminophen 500 MG Tablet 1000 MG PO ×3 (06:00→21:20)
[2022-08-11] MEDS: Furosemide 20 MG Tablet PO (06:00)
[2022-08-11] MEDS: Cholecalciferol (VIT D3) 25 MCG TABLET (1,000 UNITS) PO (06:00)
[2022-08-11] MEDS: Nystatin Powder 15gm Bottle 1 APPLIC TOPICAL ×2 (06:00→17:24)
[2022-08-11 06:26] LABS: Bedside Glucose 197 mg/dL (74-106)
[2022-08-11] MEDS: Spironolactone 25 MG Tablet PO (07:55)
[2022-08-11] MEDS: MethylPREDNISolone DosePak 4 MG BOX PO ×4 (07:56→21:19)
--- NOTE | 2022-08-11 10:50 | CASEMGMT ---
Addendum entered by Zoë Joseph 08/11/22 12:34: Received call from dtr requesting to pay privately for 10 days to buy more time to find an INN SNF. SW educated to providing payment to clay structure builder and servicer's office. Dtr appreciative. SW updated SNFs to disregard referral. SW phoned [facility] to put transport on Will Call. Updated IDT. Will continue to follow. Original Note: Social Work WVM notified this worker that facility is OON and pt does not have any OON benefits. SW reviewed all [facility] SNFs and no facility is INN with MMO. SW phoned dtr to update that therapy would be an OOP cost, in addition to room and board. Dtr requesting this worker review SNFs in [facility] and [facility]. SW provided list of SNFs via [employer] to dtr. Dtr also stated she filed an appeal through [employer]. Appeal SW to continue to follow. TRACEE Mccloud
--- NOTE | 2022-08-11 14:55 | WOUNDNOTE ---
Was asked to assess the blister to the lower back.buttock. patient is currently out of the room for activities. will check again tomorrow. RICA Nolasco states he assessed them today. dressing intact.
[2022-08-11 15:02] VITALS: BP 141/76; PULSE 87; RESP 18; TEMP 36.3; O2SAT 98
[2022-08-11 17:23] VITALS: PULSE 87
[2022-08-11] MEDS: Rivaroxaban 15 MG Tablet PO (17:23)
[2022-08-11] MEDS: Atorvastatin Calcium 10 MG Tablet PO (21:21)
[2022-08-11] MEDS: traMADol 50 MG Tablet PO (21:21)
[2022-08-12] MEDS: traMADol 50 MG Tablet PO ×2 (05:44→21:05)
[2022-08-12] MEDS: Ciprofloxacin 500 MG Tablet PO ×2 (05:45→17:05)
[2022-08-12] MEDS: Cholecalciferol (VIT D3) 25 MCG TABLET (1,000 UNITS) PO (05:45)
[2022-08-12] MEDS: Senna/Docusate Sodium 1 Tablet 2 TABLET PO ×2 (05:45→17:04)
[2022-08-12] MEDS: Acetaminophen 500 MG Tablet 1000 MG PO ×3 (05:45→21:05)
[2022-08-12] MEDS: Furosemide 20 MG Tablet PO (05:45)
[2022-08-12] MEDS: dilTIAZem CD 240 MG Capsule PO (05:45)
[2022-08-12 05:46] VITALS: BP 109/48; PULSE 90
[2022-08-12] MEDS: Metoprolol Tartrate 50 MG Tablet PO ×2 (05:46→17:05)
[2022-08-12] MEDS: cycloBENZAPRine HCl 5 MG TABLET PO ×3 (05:46→21:05)
[2022-08-12] MEDS: Nystatin Powder 15gm Bottle 1 APPLIC TOPICAL ×2 (05:46→17:06)
[2022-08-12 06:00] LABS: Absolute Lymphocyte Count 1.24 X10^3/uL (0.83-4.51); Absolute Neutrophil Count 10.5 X10^3/uL (2.0-7.7); Basophil# 0.02 X10^3/uL; Basophil% 0.2 % (0-1); Hematocrit 29.5 % (37-47); Lymphocyte # 1.24 X10^3/ul (0.83-4.51); Lymphocyte % 9.5 % (19-41); Mean Corp Hgb Conc 30.5 g/dL (32-36); Mean Corpuscular Hgb 28.8 pg (27.0-32.0); Mean Corpuscular Volume 94.6 fL (81-99); Monocyte# 1.06 X10^3/uL; Monocyte% 8.2 % (0-10); NRBC Flagged by Analyzer 0 % (0-5); Neutrophil # 10.47 X10^3/uL (2.7-7.7); Neutrophil % 80.6 % (47-70); Platelet Count 397 K/mm3 (150-450); RBC Distribution Width CV 14.7 % (11.6-14.6); RBC Distribution Width SD 50.2 fl (35.1-43.9); Red Blood Count 3.12 M/mm3 (4.2-5.4)
[2022-08-12 06:28] VITALS: BP 109/48; PULSE 90
[2022-08-12 06:28] LABS: Bedside Glucose 145 mg/dL (74-106)
[2022-08-12 06:40] LABS: Anion Gap 6 (5-15); BUN 37 mg/dL (7-18); Chloride 103 mmol/L (98-107); Creatinine, Serum 1.37 mg/dL (0.55-1.02); EST Glomerular Filtration Rate 40 mL/min (>60); Est Glom Filt Rate - Afr Amer 48 mL/min (>60); Glucose 144 mg/dL (74-106); Potassium 4.7 mmol/L (3.5-5.1); Sodium Level 136 mmol/L (136-145)
[2022-08-12] MEDS: Spironolactone 25 MG Tablet PO (08:31)
[2022-08-12] MEDS: MethylPREDNISolone DosePak 4 MG BOX PO ×3 (08:31→21:05)
[2022-08-12] MEDS: Pneumococcal Vaccine 20 Valent 0.5 ML Syringe IM (09:32)
--- NOTE | 2022-08-12 11:32 | CASEMGMT ---
Social Work Received fax from [email or web address] and pt won her appeal. SW notified pt, IDT and dtr. Dtr stated she did provide payment to [facility] already, and is okay with still paying privately if insurance continues to issue DC date prior to pt being able to return home. Pt has appt scheduled with Dr. Shine and pt and dtr are hopeful that will alleviate pain and allow more independence with pt. If pt does return home, requesting a hospital bed. However, dtr is still looking at SNFs and requested INN facilities in [facility]. SW to provide list via [employer]. Dtr appreciative. Will continue to follow. Zoë Joseph, TRACEE CORLEYW
[2022-08-12 13:40] VITALS: BP 116/51; PULSE 84; RESP 16; TEMP 36; O2SAT 95
--- NOTE | 2022-08-12 13:40 | CASEMGMT ---
Social Work BIMS () and PHQ-9 (04/12) completed for MDS assessment. Zoë Joseph MSW MIXER OPERATOR TABLETS
--- NOTE | 2022-08-12 14:41 | WOUNDNOTE ---
wound photo: mid lower back
[2022-08-12 16:27] LABS: Bedside Glucose 161 mg/dL (74-106)
[2022-08-12 17:05] VITALS: PULSE 84
[2022-08-12] MEDS: Rivaroxaban 15 MG Tablet PO (17:05)
[2022-08-12 20:25] VITALS: PULSE 74; RESP 18; O2SAT 94
[2022-08-12] MEDS: Atorvastatin Calcium 10 MG Tablet PO (21:05)
[2022-08-13 05:47] VITALS: BP 112/59; PULSE 90
[2022-08-13] MEDS: cycloBENZAPRine HCl 5 MG TABLET PO ×3 (05:47→21:07)
[2022-08-13] MEDS: Ciprofloxacin 500 MG Tablet PO (05:47)
[2022-08-13] MEDS: Metoprolol Tartrate 50 MG Tablet PO ×2 (05:47→17:52)
[2022-08-13] MEDS: Furosemide 20 MG Tablet PO (05:47)
[2022-08-13] MEDS: dilTIAZem CD 240 MG Capsule PO (05:47)
[2022-08-13] MEDS: traMADol 50 MG Tablet PO (05:48)
[2022-08-13] MEDS: Cholecalciferol (VIT D3) 25 MCG TABLET (1,000 UNITS) PO (05:48)
[2022-08-13] MEDS: Acetaminophen 500 MG Tablet 1000 MG PO ×3 (05:48→21:07)
[2022-08-13] MEDS: Senna/Docusate Sodium 1 Tablet 2 TABLET PO ×2 (05:48→17:52)
[2022-08-13] MEDS: Nystatin Powder 15gm Bottle 1 APPLIC TOPICAL ×2 (05:48→17:52)
[2022-08-13 06:42] LABS: Bedside Glucose 123 mg/dL (74-106)
[2022-08-13 06:50] VITALS: BP 112/59; PULSE 90
[2022-08-13] MEDS: oxyCODONE 5 MG Tablet PO ×2 (08:24→17:54)
[2022-08-13] MEDS: Spironolactone 25 MG Tablet PO (08:24)
[2022-08-13] MEDS: MethylPREDNISolone DosePak 4 MG BOX PO ×2 (08:24→21:08)
[2022-08-13 09:43] VITALS: PULSE 87; RESP 16; O2SAT 95
[2022-08-13 16:00] VITALS: BP 98/54; PULSE 88; RESP 16; TEMP 36.2; O2SAT 95
[2022-08-13 17:52] VITALS: BP 128/86; PULSE 89
[2022-08-13] MEDS: Rivaroxaban 15 MG Tablet PO (17:52)
[2022-08-13 18:03] VITALS: BP 128/86; PULSE 89
[2022-08-13] MEDS: Atorvastatin Calcium 10 MG Tablet PO (21:08)
[2022-08-14 05:34] VITALS: BP 133/71; PULSE 71
[2022-08-14] MEDS: Metoprolol Tartrate 50 MG Tablet PO ×2 (05:34→17:18)
[2022-08-14] MEDS: oxyCODONE 5 MG Tablet PO ×2 (05:34→20:10)
[2022-08-14] MEDS: Senna/Docusate Sodium 1 Tablet 2 TABLET PO ×2 (05:34→17:18)
[2022-08-14] MEDS: Acetaminophen 500 MG Tablet 1000 MG PO ×3 (05:35→20:11)
[2022-08-14] MEDS: cycloBENZAPRine HCl 5 MG TABLET PO ×3 (05:35→20:11)
[2022-08-14] MEDS: Furosemide 20 MG Tablet PO (05:35)
[2022-08-14] MEDS: dilTIAZem CD 240 MG Capsule PO (05:35)
[2022-08-14] MEDS: Cholecalciferol (VIT D3) 25 MCG TABLET (1,000 UNITS) PO (05:36)
[2022-08-14] MEDS: Nystatin Powder 15gm Bottle 1 APPLIC TOPICAL ×2 (05:36→17:19)
[2022-08-14 06:24] LABS: Bedside Glucose 117 mg/dL (74-106)
[2022-08-14] MEDS: Spironolactone 25 MG Tablet PO (08:13)
[2022-08-14] MEDS: MethylPREDNISolone DosePak 4 MG BOX PO (08:13)
[2022-08-14 13:47] VITALS: BP 113/62; PULSE 90; RESP 18; TEMP 36; O2SAT 94
[2022-08-14 17:18] VITALS: PULSE 90
[2022-08-14] MEDS: Rivaroxaban 15 MG Tablet PO (17:18)
[2022-08-14 19:30] VITALS: O2SAT 94
[2022-08-14] MEDS: Atorvastatin Calcium 10 MG Tablet PO (20:12)
[2022-08-15] MEDS: oxyCODONE 5 MG Tablet PO ×2 (00:48→04:45)
[2022-08-15] MEDS: Senna/Docusate Sodium 1 Tablet 2 TABLET PO ×2 (04:46→17:10)
[2022-08-15 04:47] VITALS: BP 138/81; PULSE 88
[2022-08-15] MEDS: Acetaminophen 500 MG Tablet 1000 MG PO ×3 (04:47→20:38)
[2022-08-15] MEDS: dilTIAZem CD 240 MG Capsule PO (04:47)
[2022-08-15] MEDS: Metoprolol Tartrate 50 MG Tablet PO ×2 (04:47→17:10)
[2022-08-15] MEDS: Furosemide 20 MG Tablet PO (04:47)
[2022-08-15] MEDS: Cholecalciferol (VIT D3) 25 MCG TABLET (1,000 UNITS) PO (04:48)
[2022-08-15] MEDS: Nystatin Powder 15gm Bottle 1 APPLIC TOPICAL ×2 (04:48→17:10)
[2022-08-15] MEDS: cycloBENZAPRine HCl 5 MG TABLET PO ×3 (04:48→20:38)
[2022-08-15 06:17] LABS: Bedside Glucose 118 mg/dL (74-106)
[2022-08-15] MEDS: Spironolactone 25 MG Tablet PO (08:19)
[2022-08-15 15:05] VITALS: BP 104/63; PULSE 90; RESP 16; TEMP 35.7; O2SAT 95
[2022-08-15 17:10] VITALS: PULSE 90
[2022-08-15] MEDS: Rivaroxaban 15 MG Tablet PO (17:10)
[2022-08-15] MEDS: traMADol 50 MG Tablet PO (20:38)
[2022-08-15] MEDS: Atorvastatin Calcium 10 MG Tablet PO (20:39)
[2022-08-16] MEDS: Senna/Docusate Sodium 1 Tablet 2 TABLET PO ×2 (05:20→17:27)
[2022-08-16] MEDS: traMADol 50 MG Tablet PO (05:20)
[2022-08-16 05:21] VITALS: BP 148/83; PULSE 87
[2022-08-16] MEDS: Furosemide 20 MG Tablet PO (05:21)
[2022-08-16] MEDS: Acetaminophen 500 MG Tablet 1000 MG PO ×3 (05:21→21:55)
[2022-08-16] MEDS: Cholecalciferol (VIT D3) 25 MCG TABLET (1,000 UNITS) PO (05:21)
[2022-08-16] MEDS: cycloBENZAPRine HCl 5 MG TABLET PO ×3 (05:21→21:55)
[2022-08-16] MEDS: dilTIAZem CD 240 MG Capsule PO (05:21)
[2022-08-16] MEDS: Metoprolol Tartrate 50 MG Tablet PO ×2 (05:21→17:27)
[2022-08-16] MEDS: Nystatin Powder 15gm Bottle 1 APPLIC TOPICAL ×2 (05:22→17:31)
[2022-08-16 06:40] LABS: Bedside Glucose 111 mg/dL (74-106)
[2022-08-16] MEDS: Spironolactone 25 MG Tablet PO (09:10)
[2022-08-16 10:00] VITALS: PULSE 75; RESP 16; O2SAT 98
[2022-08-16] MEDS: oxyCODONE 5 MG Tablet PO (11:26)
[2022-08-16 14:19] VITALS: BP 91/66; PULSE 101; RESP 14; TEMP 36.2; O2SAT 93
[2022-08-16 17:27] VITALS: PULSE 105
[2022-08-16] MEDS: Rivaroxaban 15 MG Tablet PO (17:27)
[2022-08-16] MEDS: Atorvastatin Calcium 10 MG Tablet PO (21:55)
[2022-08-17] MEDS: oxyCODONE 5 MG Tablet PO ×3 (01:24→20:11)
[2022-08-17 05:45] VITALS: BP 124/76; PULSE 88
[2022-08-17] MEDS: dilTIAZem CD 240 MG Capsule PO (05:45)
[2022-08-17] MEDS: cycloBENZAPRine HCl 5 MG TABLET PO ×3 (05:45→20:11)
[2022-08-17] MEDS: Acetaminophen 500 MG Tablet 1000 MG PO ×3 (05:45→20:11)
[2022-08-17] MEDS: Cholecalciferol (VIT D3) 25 MCG TABLET (1,000 UNITS) PO (05:45)
[2022-08-17] MEDS: Furosemide 20 MG Tablet PO (05:45)
[2022-08-17] MEDS: Metoprolol Tartrate 50 MG Tablet PO ×2 (05:45→17:07)
[2022-08-17] MEDS: Senna/Docusate Sodium 1 Tablet 2 TABLET PO ×2 (05:45→17:06)
[2022-08-17] MEDS: Nystatin Powder 15gm Bottle 1 APPLIC TOPICAL ×2 (05:46→17:07)
[2022-08-17 06:40] LABS: Bedside Glucose 87 mg/dL (74-106)
[2022-08-17] MEDS: Spironolactone 25 MG Tablet PO (08:22)
[2022-08-17 14:12] VITALS: BP 133/54; PULSE 104; RESP 18; TEMP 36.3
[2022-08-17 17:07] VITALS: BP 124/62; PULSE 91
[2022-08-17] MEDS: Rivaroxaban 15 MG Tablet PO (17:07)
[2022-08-17] MEDS: Atorvastatin Calcium 10 MG Tablet PO (20:12)
[2022-08-18] MEDS: traMADol 50 MG Tablet PO ×2 (01:06→20:50)
[2022-08-18] MEDS: Acetaminophen 500 MG Tablet 1000 MG PO ×3 (05:01→20:50)
[2022-08-18] MEDS: Senna/Docusate Sodium 1 Tablet 2 TABLET PO ×2 (05:01→17:20)
[2022-08-18 05:02] VITALS: BP 145/62; PULSE 79
[2022-08-18] MEDS: dilTIAZem CD 240 MG Capsule PO (05:02)
[2022-08-18] MEDS: Metoprolol Tartrate 50 MG Tablet PO ×2 (05:02→17:20)
[2022-08-18] MEDS: Furosemide 20 MG Tablet PO (05:02)
[2022-08-18] MEDS: cycloBENZAPRine HCl 5 MG TABLET PO ×3 (05:03→20:51)
[2022-08-18] MEDS: Nystatin Powder 15gm Bottle 1 APPLIC TOPICAL ×2 (05:03→17:23)
[2022-08-18] MEDS: Cholecalciferol (VIT D3) 25 MCG TABLET (1,000 UNITS) PO (05:03)
[2022-08-18] MEDS: oxyCODONE 5 MG Tablet PO ×2 (05:05→11:48)
[2022-08-18 07:19] LABS: Bedside Glucose 117 mg/dL (74-106)
[2022-08-18] MEDS: Spironolactone 25 MG Tablet PO (08:17)
--- NOTE | 2022-08-18 13:19 | NURSING ---
Addendum entered by Tiffanie Cardona 08/23/22 08:51: Followed up with Dr. Shine's office. Per their notes Dr. Shine came and saw patient on 08/18-when he saw patient she told him her pain was tolerable and controlled with current treatment. Dr. Shine suggested to continue with therapy and follow up with him on PRN basis. Original Note: OT reporting patient pain not improved at all, having numbness down right leg. Spoke with patient in room, she says Rl came by but couldn't remember what he said. Called Rl's office, per the staff MD note says he wants her to continue therapy and f/u PRN. Reported patient's pain, numbness, lack of improvement. They will notify Dr. Shine and call back.
--- NOTE | 2022-08-18 14:27 | WOUNDNOTE ---
wound photo: mid lower back
--- NOTE | 2022-08-18 14:28 | WOUNDNOTE ---
wound photo: left buttock
[2022-08-18 14:35] VITALS: BP 135/60; PULSE 73; RESP 16; TEMP 36.1; O2SAT 93
[2022-08-18] MEDS: Rivaroxaban 15 MG Tablet PO (17:19)
[2022-08-18 17:20] VITALS: PULSE 79
[2022-08-18 20:00] VITALS: O2SAT 95
[2022-08-18] MEDS: Atorvastatin Calcium 10 MG Tablet PO (20:51)
--- NOTE | 2022-08-18 22:00 | NURSING ---
Pt encouraged to switch sides whenever possible when laying in bed to alleviate pressure from her buttocks. Pt resistant to laying in any other position other than supine while in bed, stating that it is too painful. Refuses pillows being placed under sides to help with pressure as well, when in bed and when in chair. Pt educated on possibility of worsening pressure wound on left buttocks; stated understanding, but still insists on laying on back.
[2022-08-19] MEDS: oxyCODONE 5 MG Tablet PO ×3 (04:29→22:07)
[2022-08-19 04:30] VITALS: BP 145/61; PULSE 78
[2022-08-19] MEDS: Senna/Docusate Sodium 1 Tablet 2 TABLET PO ×2 (04:30→18:52)
[2022-08-19] MEDS: Metoprolol Tartrate 50 MG Tablet PO ×2 (04:30→18:52)
[2022-08-19] MEDS: Cholecalciferol (VIT D3) 25 MCG TABLET (1,000 UNITS) PO (04:31)
[2022-08-19] MEDS: Furosemide 20 MG Tablet PO (04:31)
[2022-08-19] MEDS: cycloBENZAPRine HCl 5 MG TABLET PO ×3 (04:31→22:08)
[2022-08-19] MEDS: dilTIAZem CD 240 MG Capsule PO (04:31)
[2022-08-19] MEDS: Acetaminophen 500 MG Tablet 1000 MG PO ×3 (04:31→22:08)
[2022-08-19] MEDS: Nystatin Powder 15gm Bottle 1 APPLIC TOPICAL ×2 (04:32→18:51)
[2022-08-19 05:46] LABS: Absolute Lymphocyte Count 1.32 X10^3/uL (0.83-4.51); Absolute Neutrophil Count 5.7 X10^3/uL (2.0-7.7); Basophil# 0.03 X10^3/uL; Basophil% 0.4 % (0-1); Eosinophil# 0.17 X10^3/uL; Hematocrit 31.3 % (37-47); Hemoglobin 9.8 g/dL (12.0-15.0); Lymphocyte # 1.32 X10^3/ul (0.83-4.51); Lymphocyte % 15.6 % (19-41); Mean Corp Hgb Conc 31.3 g/dL (32-36); Mean Corpuscular Hgb 29.3 pg (27.0-32.0); Mean Corpuscular Volume 93.4 fL (81-99); Mean Platelet Vol. 8.9 fl (6.2-12.0); Monocyte# 1.11 X10^3/uL; Monocyte% 13.2 % (0-10); NRBC Flagged by Analyzer 0 % (0-5); Neutrophil # 5.71 X10^3/uL (2.7-7.7); Neutrophil % 67.6 % (47-70); Platelet Count 284 K/mm3 (150-450); RBC Distribution Width CV 15.9 % (11.6-14.6); RBC Distribution Width SD 53.4 fl (35.1-43.9); Red Blood Count 3.35 M/mm3 (4.2-5.4); White Blood Count 8.4 K/mm3 (4.4-11.0)
[2022-08-19 06:24] LABS: Anion Gap 4 (5-15); BUN 27 mg/dL (7-18); BUN/Creat Ratio 26.2 RATIO (10-20); Calcium,Total 8.7 mg/dL (8.5-10.1); Chloride 105 mmol/L (98-107); Creatinine, Serum 1.03 mg/dL (0.55-1.02); EST Glomerular Filtration Rate 55 mL/min (>60); Est Glom Filt Rate - Afr Amer 67 mL/min (>60); Estimated Creatinine Clearance 32.85 ml/min; Glucose 123 mg/dL (74-106); Potassium 3.9 mmol/L (3.5-5.1); Sodium Level 138 mmol/L (136-145)
[2022-08-19 06:45] LABS: Bedside Glucose 126 mg/dL (74-106)
[2022-08-19] MEDS: traMADol 50 MG Tablet PO ×2 (07:43→13:44)
[2022-08-19] MEDS: Spironolactone 25 MG Tablet PO (07:45)
[2022-08-19 08:27] VITALS: O2SAT 96
[2022-08-19 16:00] VITALS: BP 115/79; PULSE 88; RESP 16; TEMP 35.9; O2SAT 97
[2022-08-19] MEDS: Rivaroxaban 15 MG Tablet PO (18:51)
[2022-08-19 18:52] VITALS: PULSE 84
[2022-08-19] MEDS: Atorvastatin Calcium 10 MG Tablet PO (22:08)
[2022-08-20 06:01] VITALS: BP 142/79; PULSE 80
[2022-08-20] MEDS: Cholecalciferol (VIT D3) 25 MCG TABLET (1,000 UNITS) PO (06:01)
[2022-08-20] MEDS: dilTIAZem CD 240 MG Capsule PO (06:01)
[2022-08-20] MEDS: cycloBENZAPRine HCl 5 MG TABLET PO ×3 (06:01→22:05)
[2022-08-20] MEDS: Senna/Docusate Sodium 1 Tablet 2 TABLET PO ×2 (06:01→17:18)
[2022-08-20] MEDS: Metoprolol Tartrate 50 MG Tablet PO ×2 (06:01→17:17)
[2022-08-20] MEDS: Furosemide 20 MG Tablet PO (06:01)
[2022-08-20] MEDS: Nystatin Powder 15gm Bottle 1 APPLIC TOPICAL ×2 (06:01→17:17)
[2022-08-20] MEDS: Acetaminophen 500 MG Tablet 1000 MG PO ×3 (06:01→22:05)
[2022-08-20] MEDS: oxyCODONE 5 MG Tablet PO (08:11)
[2022-08-20] MEDS: Spironolactone 25 MG Tablet PO (08:11)
--- NOTE | 2022-08-20 12:12 | CASEMGMT ---
Addendum entered by Zoë Joseph 08/20/22 15:59: SW phoned [facility] and they do not have private pay beds available. SW phoned dtr to notify and ask for more SNFs. Dtr would like to pay privately for further days until a facility is secured. A check has already been processed from appeal. Dtr to speak with brother and notify this worker of other facilities. IDT updated. Addendum entered by Zoë Joseph 08/20/22 15:15: SW phoned [facility] and they are reviewing. Will await outcome. Original Note: Social Work Insurance issued LCD 08/22, DC 08/23. EMILIE phoned dtr to update and provided options again for appeal, home, SNF or pay privately in TCU. SW provided update via documentation and dtr agreees pt cannot return home at this time. Dtr requesting referral to [facility] in [place]. [facility] TRACEE MccloudW
[2022-08-20 15:38] VITALS: BP 127/53; PULSE 80; RESP 16; TEMP 35.9; O2SAT 99
[2022-08-20] MEDS: Rivaroxaban 15 MG Tablet PO (17:16)
[2022-08-20 17:17] VITALS: PULSE 80
[2022-08-20] MEDS: Atorvastatin Calcium 10 MG Tablet PO (22:05)
[2022-08-20] MEDS: MENTHOL 226.8 GM JAR 1 APPLIC TOPICAL (22:06)
[2022-08-21] MEDS: oxyCODONE 5 MG Tablet PO ×3 (01:14→23:23)
[2022-08-21] MEDS: Cholecalciferol (VIT D3) 25 MCG TABLET (1,000 UNITS) PO (05:07)
[2022-08-21] MEDS: Senna/Docusate Sodium 1 Tablet 2 TABLET PO ×2 (05:08→17:19)
[2022-08-21] MEDS: Acetaminophen 500 MG Tablet 1000 MG PO ×3 (05:08→21:17)
[2022-08-21] MEDS: Furosemide 20 MG Tablet PO (05:08)
[2022-08-21] MEDS: cycloBENZAPRine HCl 5 MG TABLET PO ×3 (05:08→21:17)
[2022-08-21 05:09] VITALS: BP 140/71; PULSE 105
[2022-08-21] MEDS: Metoprolol Tartrate 50 MG Tablet PO ×2 (05:09→17:19)
[2022-08-21] MEDS: dilTIAZem CD 240 MG Capsule PO (05:09)
[2022-08-21] MEDS: MENTHOL 226.8 GM JAR 1 APPLIC TOPICAL (05:09)
[2022-08-21] MEDS: Nystatin Powder 15gm Bottle 1 APPLIC TOPICAL ×2 (05:15→17:19)
[2022-08-21 06:33] LABS: Bedside Glucose 122 mg/dL (74-106)
[2022-08-21] MEDS: Spironolactone 25 MG Tablet PO (08:04)
[2022-08-21] MEDS: traMADol 50 MG Tablet PO ×2 (08:04→21:17)
[2022-08-21 10:03] VITALS: PULSE 109; RESP 17; O2SAT 97
[2022-08-21 14:02] VITALS: BP 136/70; PULSE 82; RESP 16; TEMP 36.2; O2SAT 96
[2022-08-21 17:19] VITALS: BP 120/74; PULSE 105
[2022-08-21] MEDS: Rivaroxaban 15 MG Tablet PO (17:19)
[2022-08-21] MEDS: Atorvastatin Calcium 10 MG Tablet PO (21:17)
[2022-08-22] MEDS: oxyCODONE 5 MG Tablet PO ×2 (04:25→22:20)
--- NOTE | 2022-08-22 04:47 | NURSING ---
Pt refuses to be turned/repositioned while in bed. Education given on importance of repositioning due to her pressure sore on L buttock, but pt continues to refuse and states it just makes her pain worse to move even after PRN pain medications are administered. Mepilex dry and intact.
[2022-08-22] MEDS: cycloBENZAPRine HCl 5 MG TABLET PO ×3 (06:19→21:20)
[2022-08-22] MEDS: Furosemide 20 MG Tablet PO (06:19)
[2022-08-22] MEDS: dilTIAZem CD 240 MG Capsule PO (06:19)
[2022-08-22 06:20] VITALS: BP 111/66; PULSE 102
[2022-08-22] MEDS: Senna/Docusate Sodium 1 Tablet 2 TABLET PO ×2 (06:20→17:57)
[2022-08-22] MEDS: Metoprolol Tartrate 50 MG Tablet PO ×2 (06:20→17:57)
[2022-08-22] MEDS: Acetaminophen 500 MG Tablet 1000 MG PO ×3 (06:20→21:20)
[2022-08-22] MEDS: Cholecalciferol (VIT D3) 25 MCG TABLET (1,000 UNITS) PO (06:20)
[2022-08-22] MEDS: Nystatin Powder 15gm Bottle 1 APPLIC TOPICAL ×2 (06:20→17:57)
[2022-08-22 06:24] VITALS: BP 111/66; PULSE 102
[2022-08-22 06:28] LABS: Bedside Glucose 125 mg/dL (74-106)
[2022-08-22] MEDS: Spironolactone 25 MG Tablet PO (08:06)
[2022-08-22 14:21] VITALS: BP 114/56; PULSE 88; RESP 18; TEMP 36.4; O2SAT 97
[2022-08-22 17:57] VITALS: BP 133/70; PULSE 107
[2022-08-22] MEDS: Rivaroxaban 15 MG Tablet PO (17:58)
[2022-08-22 20:10] VITALS: PULSE 96; RESP 16; O2SAT 95
[2022-08-22] MEDS: Atorvastatin Calcium 10 MG Tablet PO (21:20)
[2022-08-22] MEDS: traMADol 50 MG Tablet PO (21:20)
[2022-08-23] MEDS: oxyCODONE 5 MG Tablet PO (02:55)
--- NOTE | 2022-08-23 05:20 | NURSING ---
Pt c/o severe pain throughout shift, PRNs given when due. Pt agreed to a warm blanket but refused any other interventions. Education provided on importance of repositioning/turning Q2H due to her pressure injuries but pt continues to refuse.
[2022-08-23] MEDS: Acetaminophen 500 MG Tablet 1000 MG PO ×3 (05:46→21:03)
[2022-08-23 05:47] VITALS: BP 139/88; PULSE 94
[2022-08-23] MEDS: dilTIAZem CD 240 MG Capsule PO (05:47)
[2022-08-23] MEDS: cycloBENZAPRine HCl 5 MG TABLET PO ×3 (05:47→21:03)
[2022-08-23] MEDS: Senna/Docusate Sodium 1 Tablet 2 TABLET PO ×2 (05:47→17:16)
[2022-08-23] MEDS: Metoprolol Tartrate 50 MG Tablet PO ×2 (05:47→17:16)
[2022-08-23] MEDS: Furosemide 20 MG Tablet PO (05:47)
[2022-08-23] MEDS: Cholecalciferol (VIT D3) 25 MCG TABLET (1,000 UNITS) PO (05:47)
[2022-08-23] MEDS: traMADol 50 MG Tablet PO ×2 (05:47→21:02)
[2022-08-23] MEDS: Nystatin Powder 15gm Bottle 1 APPLIC TOPICAL ×2 (05:49→21:02)
[2022-08-23 06:31] LABS: Bedside Glucose 120 mg/dL (74-106)
[2022-08-23] MEDS: Spironolactone 25 MG Tablet PO (08:26)
--- NOTE | 2022-08-23 11:55 | CASEMGMT ---
Addendum entered by Zoë Joseph 08/23/22 15:34: [facility] can accept pt for DC tomorrow. EMILIE phoned dtr to update. Dtr agreeable to DC 08/24. IDT updated. Pt updated. Edited PASRR. W/C transport scheduled through [facility] for 1300. Plan: DC 08/24 to [facility], intermediate, private pay Original Note: Social Work Dtr filed appeal through [facility] on 08/21. . Medical records sent to [facility] per request. Dtr phoned this worker that appeal was lost and requesting referral to [facility] for DC as soon as possible. SW [facility]. Will continue to follow. TRACEE Mccloud
[2022-08-23 13:40] VITALS: BP 110/67; PULSE 92; RESP 16; TEMP 36.3; O2SAT 96
--- NOTE | 2022-08-23 14:00 | WOUNDNOTE ---
wound photo: mid lower back
--- NOTE | 2022-08-23 14:01 | WOUNDNOTE ---
wound photo: left buttock
[2022-08-23 17:16] VITALS: BP 139/80; PULSE 116
[2022-08-23] MEDS: Rivaroxaban 15 MG Tablet PO (17:17)
[2022-08-23] MEDS: Atorvastatin Calcium 10 MG Tablet PO (21:04)
[2022-08-24] MEDS: oxyCODONE 5 MG Tablet PO (05:25)
[2022-08-24] MEDS: cycloBENZAPRine HCl 5 MG TABLET PO ×2 (05:27→13:05)
[2022-08-24 05:28] VITALS: BP 130/79; PULSE 84
[2022-08-24] MEDS: Cholecalciferol (VIT D3) 25 MCG TABLET (1,000 UNITS) PO (05:28)
[2022-08-24] MEDS: Metoprolol Tartrate 50 MG Tablet PO (05:28)
[2022-08-24] MEDS: Senna/Docusate Sodium 1 Tablet 2 TABLET PO (05:28)
[2022-08-24] MEDS: Acetaminophen 500 MG Tablet 1000 MG PO ×2 (05:28→13:04)
[2022-08-24] MEDS: dilTIAZem CD 240 MG Capsule PO (05:28)
[2022-08-24] MEDS: Furosemide 20 MG Tablet PO (05:28)
[2022-08-24] MEDS: Nystatin Powder 15gm Bottle 1 APPLIC TOPICAL (05:29)
[2022-08-24 06:41] LABS: Bedside Glucose 143 mg/dL (74-106)
[2022-08-24] MEDS: Spironolactone 25 MG Tablet PO (09:13)
[2022-08-24 09:17] VITALS: BP 126/54; PULSE 91
--- NOTE | 2022-08-24 09:17 | NURSING ---
PT HAS NOT HAD BM IN 3 DAYS. OFFERED PT A PRN STOOL SOFTENER, PT REFUSED AND STATED I DONT GO EVERYDAY.
--- NOTE | 2022-08-24 09:52 | CASEMGMT ---
Social Work BIMS and PHQ-9 completed for MDS assessment. Zoë Joseph, EHS ENGINEER DUPLICATOR PUNCH OPERATOR
[2022-08-24 10:45] VITALS: PULSE 105; RESP 18; O2SAT 92
[2022-08-24] MEDS: traMADol 50 MG Tablet PO (11:15)
--- NOTE | 2022-08-24 11:22 | NURSING ---
DAUGHTER PACKED UP REST OF PT STUFF AND PT HOME MEDS AND WALLET/PURSE ALSO WENT WITH DAUGHTER. PT AWARE AND AID.
[2022-08-24 13:10] VITALS: BP 123/59; PULSE 105; RESP 18; TEMP 36.3; O2SAT 94
== END 2022-08-24 13:15 | disposition intermediate care facility (04) | DRG 552 ==
PROVIDERS: Admitting Provider Family Medicine Geriatric Medicine; PCP Internal Medicine; Referring Provider Family Medicine Geriatric Medicine; Visit Provider Family Medicine Geriatric Medicine
DX: M54.42 Lumbago with sciatica, left side (principal); N39.0 Urinary tract infection, site not specified; I50.32 Chronic diastolic (congestive) heart failure; I11.0 Hypertensive heart disease with heart failure; E11.9 Type 2 diabetes mellitus without complications; E55.9 Vitamin D deficiency, unspecified; D50.9 Iron deficiency anemia, unspecified; B96.20 Unspecified Escherichia coli [E. coli] as the cause of diseases classified elsewhere; Z79.4 Long term (current) use of insulin; I48.91 Unspecified atrial fibrillation; E78.5 Hyperlipidemia, unspecified; K43.9 Ventral hernia without obstruction or gangrene; Z87.891 Personal history of nicotine dependence; Z79.899 Other long term (current) drug therapy
CPT/HCPCS: 36415; 71046; 80048; 81001; 82962; 85014; 85018; 85025; 87077; 87086; 87088; 87186; 87811; 90677; 97110; 97112; 97116; 97162; 97166; 97530; 97535; 97802; G0009; A4216

== ENCOUNTER → 2022-09-07 | Outpatient (REF) | payer MEDICARE, SELFPAY ==
[2022-09-07 08:37] LABS: Hemoglobin 10.4 g/dL (12.0-15.0); Mean Corp Hgb Conc 29.7 g/dL (32-36); Mean Corpuscular Hgb 29.7 pg (27.0-32.0); Mean Platelet Vol. 9.7 fl (6.2-12.0); Platelet Count 300 K/mm3 (150-450); RBC Distribution Width CV 16.7 % (11.6-14.6); RBC Distribution Width SD 61.4 fl (35.1-43.9)
[2022-09-07 08:49] LABS: Anion Gap 4 (5-15); BUN 26 mg/dL (7-18); BUN/Creat Ratio 24.5 RATIO (10-20); Calcium,Total 8.7 mg/dL (8.5-10.1); Chloride 106 mmol/L (98-107); Creatinine, Serum 1.06 mg/dL (0.55-1.02); EST Glomerular Filtration Rate 53 mL/min (>60); Est Glom Filt Rate - Afr Amer 65 mL/min (>60); Glucose 78 mg/dL (74-106); Potassium 3.2 mmol/L (3.5-5.1); Sodium Level 140 mmol/L (136-145)
== END ==
LOC: OLS.WCC 05:00
PROVIDERS: PCP Internal Medicine; Visit Provider Family Medicine
DX: I48.91 Unspecified atrial fibrillation (principal); I11.0 Hypertensive heart disease with heart failure; I50.9 Heart failure, unspecified; E11.9 Type 2 diabetes mellitus without complications; E78.5 Hyperlipidemia, unspecified
CPT/HCPCS: 36415; 80048; 85027

== ENCOUNTER → 2022-09-10 | Outpatient (REF) | payer MEDICARE, SELFPAY ==
[2022-09-10 08:40] LABS: Hematocrit 34.6 % (37-47); Hemoglobin 10.5 g/dL (12.0-15.0); Mean Corp Hgb Conc 30.3 g/dL (32-36); Mean Corpuscular Hgb 29.2 pg (27.0-32.0); Mean Corpuscular Volume 96.1 fL (81-99); Mean Platelet Vol. 9.1 fl (6.2-12.0); Platelet Count 275 K/mm3 (150-450); RBC Distribution Width CV 16.3 % (11.6-14.6); RBC Distribution Width SD 57.8 fl (35.1-43.9); White Blood Count 8.5 K/mm3 (4.4-11.0)
[2022-09-10 08:51] LABS: Anion Gap 7 (5-15); BUN 28 mg/dL (7-18); BUN/Creat Ratio 29.9 RATIO (10-20); Calcium,Total 9.1 mg/dL (8.5-10.1); Chloride 103 mmol/L (98-107); Creatinine, Serum 0.94 mg/dL (0.55-1.02); EST Glomerular Filtration Rate 62 mL/min (>60); Est Glom Filt Rate - Afr Amer 74 mL/min (>60); Glucose 98 mg/dL (74-106); Potassium 3.4 mmol/L (3.5-5.1); Sodium Level 138 mmol/L (136-145)
== END ==
LOC: OLS.WCC 05:00
PROVIDERS: PCP Internal Medicine; Visit Provider Family Medicine
DX: E55.9 Vitamin D deficiency, unspecified (principal); I48.0 Paroxysmal atrial fibrillation; I11.0 Hypertensive heart disease with heart failure; I50.32 Chronic diastolic (congestive) heart failure
CPT/HCPCS: 36415; 80048; 85027

== ENCOUNTER → 2022-10-06 | Outpatient (REF) | payer MEDICARE, SELFPAY ==
[2022-10-07 09:48] LABS: Color, Urine Yellow (Yellow); Glucose, Dipstick Normal (Normal); Ketone-Dipstick Negative (Negative); Leukocyte Esterase-Dipstick 100 /ul (Negative); Nitrite-Dipstick Negative (Negative); Occult Blood-Urine 25 /ul (Negative); Protein-Dipstick Negative (Negative); Urine Bilirubin Dipstick Negative (Negative); Urine Clarity Clear (Clear); Urine Urobilinogen Normal (Normal)
== END ==
LOC: OLS.WCC 09:26
PROVIDERS: PCP Internal Medicine; Visit Provider Family Medicine
DX: R41.82 Altered mental status, unspecified (principal)
CPT/HCPCS: 81002; 87086; 87088

== ENCOUNTER → 2022-10-12 | Outpatient (REF) | payer MEDICARE, SELFPAY ==
[2022-10-12 08:15] LABS: Absolute Lymphocyte Count 1.24 X10^3/uL (0.83-4.51); Absolute Neutrophil Count 6.9 X10^3/uL (2.0-7.7); Basophil# 0.05 X10^3/uL; Basophil% 0.5 % (0-1); Eosinophil# 0.21 X10^3/uL; Eosinophils% 2.2 % (0-5); Hematocrit 34.1 % (37-47); Hemoglobin 10.2 g/dL (12.0-15.0); Lymphocyte # 1.24 X10^3/ul (0.83-4.51); Lymphocyte % 12.8 % (19-41); Mean Corp Hgb Conc 29.9 g/dL (32-36); Mean Corpuscular Hgb 28.3 pg (27.0-32.0); Mean Corpuscular Volume 94.5 fL (81-99); Mean Platelet Vol. 8.9 fl (6.2-12.0); Monocyte# 1.22 X10^3/uL; Monocyte% 12.6 % (0-10); NRBC Flagged by Analyzer 0 % (0-5); Neutrophil # 6.94 X10^3/uL (2.7-7.7); Neutrophil % 71.6 % (47-70); Platelet Count 332 K/mm3 (150-450); RBC Distribution Width CV 16.3 % (11.6-14.6); RBC Distribution Width SD 56.6 fl (35.1-43.9); Red Blood Count 3.61 M/mm3 (4.2-5.4); White Blood Count 9.7 K/mm3 (4.4-11.0)
[2022-10-12 08:25] LABS: Anion Gap 6 (5-15); BUN 39 mg/dL (7-18); BUN/Creat Ratio 48.3 RATIO (10-20); Calcium,Total 9.1 mg/dL (8.5-10.1); Chloride 103 mmol/L (98-107); Creatinine, Serum 0.81 mg/dL (0.55-1.02); EST Glomerular Filtration Rate 73 mL/min (>60); Est Glom Filt Rate - Afr Amer 88 mL/min (>60); Glucose 81 mg/dL (74-106); Sodium Level 138 mmol/L (136-145)
[2022-10-12 08:29] LABS: Vitamin D,25 Hydroxy 64.4 ng/mL
== END ==
LOC: OLS.WCC 05:00
PROVIDERS: PCP Internal Medicine; Visit Provider Family Medicine
DX: E55.9 Vitamin D deficiency, unspecified (principal); I48.91 Unspecified atrial fibrillation; I11.0 Hypertensive heart disease with heart failure; I50.9 Heart failure, unspecified; E78.5 Hyperlipidemia, unspecified
CPT/HCPCS: 36415; 80048; 82306; 83735; 85025

== ENCOUNTER → 2022-11-12 | Outpatient (REF) | payer MEDICARE, SELFPAY ==
[2022-11-12 08:49] LABS: Absolute Lymphocyte Count 1.08 X10^3/uL (0.83-4.51); Absolute Neutrophil Count 6.8 X10^3/uL (2.0-7.7); Basophil# 0.04 X10^3/uL; Basophil% 0.4 % (0-1); Eosinophil# 0.36 X10^3/uL; Eosinophils% 3.8 % (0-5); Hematocrit 35.8 % (37-47); Hemoglobin 10.7 g/dL (12.0-15.0); Lymphocyte # 1.08 X10^3/ul (0.83-4.51); Lymphocyte % 11.3 % (19-41); Mean Corp Hgb Conc 29.9 g/dL (32-36); Mean Corpuscular Volume 93.7 fL (81-99); Mean Platelet Vol. 9.3 fl (6.2-12.0); Monocyte# 1.29 X10^3/uL; Monocyte% 13.4 % (0-10); NRBC Flagged by Analyzer 0 % (0-5); Neutrophil # 6.76 X10^3/uL (2.7-7.7); Neutrophil % 70.4 % (47-70); Platelet Count 322 K/mm3 (150-450); RBC Distribution Width CV 15.5 % (11.6-14.6); RBC Distribution Width SD 53.3 fl (35.1-43.9); Red Blood Count 3.82 M/mm3 (4.2-5.4); White Blood Count 9.6 K/mm3 (4.4-11.0)
[2022-11-12 09:12] LABS: Anion Gap 5 (5-15); BUN 39 mg/dL (7-18); BUN/Creat Ratio 45.9 RATIO (10-20); Chloride 104 mmol/L (98-107); Creatinine, Serum 0.85 mg/dL (0.55-1.02); EST Glomerular Filtration Rate 69 mL/min (>60); Est Glom Filt Rate - Afr Amer 83 mL/min (>60); Glucose 72 mg/dL (74-106); Potassium 3.7 mmol/L (3.5-5.1); Sodium Level 137 mmol/L (136-145)
== END ==
LOC: OLS.WCC 05:00
PROVIDERS: PCP Internal Medicine; Visit Provider Family Medicine
DX: E11.9 Type 2 diabetes mellitus without complications (principal); I50.32 Chronic diastolic (congestive) heart failure; M62.81 Muscle weakness (generalized)
CPT/HCPCS: 36415; 80048; 85025

== ENCOUNTER → 2022-11-16 | Outpatient (CLI) | payer MEDICARE, SELFPAY ==
--- NOTE | 2022-11-16 07:16 | MRI_ITS ---
STUDY: MRI LUMBAR SPINE WITHOUT CONTRAST REASON FOR EXAM: Female, 77 years old. pain TECHNIQUE: Standardized fat and water weighted pulse sequences were obtained in the sagittal and axial planes. COMPARISON: None FINDINGS: T12-L1: Normal endplates. Normal disc height, desiccation and normal morphology. Normal bilateral facet joints. Normal central canal and bilateral lateral recesses. Normal bilateral intervertebral neural foramina. Normal lumbar lordosis. There is no substantial scoliosis. Normal conus medullaris that terminates at T12 L1-2: Grade 1 retrolisthesis . Endplate spurring... Narrowed disc space with desiccation of disc and minor bulging disc osteophyte complex.. Mild facet arthropathy. Mild narrowing of the central canal and normal bilateral lateral recesses. Severe bilateral neural foraminal stenosis exaggerated by shortened pedicles. L2-3: Narrowed disc space and minimal bulging of the inflated with small broad-based central disc osteophyte protrusion. Facet arthropathy and thickening of ligamenta flava... Mild narrowing of central canal. Normal bilateral lateral recesses. Moderate bilateral neural foraminal stenosis L3-4: Normal endplates. Normal disc height, desiccation mild annular bulge with prominent central disc protrusion. Bilateral facet arthropathy and thickening of ligamenta flava.. Moderate to severe central canal, bilateral lateral recess stenosis and neural foraminal stenosis. L4-5: Grade 1 spondylolisthesis Normal endplates. Normal disc height, desiccation and minimal bulging disc osteophyte complex.. Facet arthropathy and thickening of ligamenta flava Normal central canal. Moderate bilateral recess stenosis and severe neural foraminal stenosis exaggerated by shortened pedicles L5-S1: Normal endplates. Normal disc height, hydration and morphology. Normal bilateral facet joints. Normal central canal and bilateral lateral recesses. Normal bilateral intervertebral neural foramina. Normal visualized sacral ala. Normal visualized paraspinous soft tissue structures. MRI/Spine Lumbar (Routine) IMPRESSION: No evidence for acute fracture or other significant bony pathology Spondylosis and multilevel spinal stenosis secondary to disc disease and facet arthropathy and exaggerated by the pedicles most severe at L3-4. Findings as above Electronically Signed: Serg Sosa MD at 19:59 EDT ,
== END | disposition home or self-care (01) ==
LOC: MRI 07:05
PROVIDERS: PCP Internal Medicine; Referring Provider Orthopaedic Surgery; Visit Provider Orthopaedic Surgery
DX: M54.30 Sciatica, unspecified side (principal)
CPT/HCPCS: 72148

== ENCOUNTER → 2022-12-07 | Outpatient (REF) | payer MEDICARE, SELFPAY ==
[2022-12-07 08:47] LABS: Hematocrit 38.3 % (37-47); Hemoglobin 11.7 g/dL (12.0-15.0); Mean Corp Hgb Conc 30.5 g/dL (32-36); Mean Corpuscular Hgb 27.7 pg (27.0-32.0); Mean Corpuscular Volume 90.8 fL (81-99); Mean Platelet Vol. 9.8 fl (6.2-12.0); Platelet Count 333 K/mm3 (150-450); RBC Distribution Width CV 16.1 % (11.6-14.6); RBC Distribution Width SD 52.8 fl (35.1-43.9); Red Blood Count 4.22 M/mm3 (4.2-5.4); White Blood Count 8.8 K/mm3 (4.4-11.0)
[2022-12-07 08:54] LABS: Anion Gap 4 (5-15); BUN 37 mg/dL (7-18); BUN/Creat Ratio 45.8 RATIO (10-20); Calcium,Total 9.8 mg/dL (8.5-10.1); Chloride 105 mmol/L (98-107); Cholesterol 144 mg/dL (200); Creatinine, Serum 0.81 mg/dL (0.55-1.02); EST Glomerular Filtration Rate 73 mL/min (>60); Est Glom Filt Rate - Afr Amer 88 mL/min (>60); Glucose 142 mg/dL (74-106); High Density Lipoprotein 33 mg/dL; Potassium 3.7 mmol/L (3.5-5.1); Sodium Level 139 mmol/L (136-145); Triglycerides 202 mg/dL; Very Low Density Lipoprotein 40 mg/dL (5-40)
[2022-12-07 08:58] LABS: Vitamin D,25 Hydroxy 56.9 ng/mL
[2022-12-07 09:55] LABS: Hemoglobin A1c 5.2 % (3.8-5.6)
== END ==
LOC: OLS.WCC 05:00
PROVIDERS: PCP Internal Medicine; Visit Provider Family Medicine
DX: I48.91 Unspecified atrial fibrillation (principal); I11.0 Hypertensive heart disease with heart failure; I50.9 Heart failure, unspecified; E11.9 Type 2 diabetes mellitus without complications; E55.9 Vitamin D deficiency, unspecified; E78.5 Hyperlipidemia, unspecified
CPT/HCPCS: 36415; 80048; 80061; 82306; 83036; 85027